=== PATIENT | male | born 1950 | race Caucasian/White ===

== ENCOUNTER 2016-12-08 06:14 | Inpatient (IN) ==
--- NOTE | 2016-12-04 09:15 | Anesthesia Evaluation PreOp ---
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: TIA (no residual) Other Medical History: Renal (stage 3 CKD), Diabetes Type II Anesthesia History: No Prior Anesthetic Complications, Past Anesthesia ( Cholecystectomy) Alcohol Use: none Drug use: none Medications and Allergies Atorvastatin [Lipitor] 40 mg PO HS 06/07/15 [History] Isosorbide MONOnitrate (24 HR) [Imdur] 30 mg PO DAILY 06/07/15 [History] Lisinopril 2.5 mg PO DAILY 06/07/15 [History] Metformin HCl [Glucophage] 1,000 mg PO BID 06/07/15 [History] Metoprolol 50 mg PO BID 06/07/15 [History] Ascorbic Acid [Vitamin C] 1,000 mg PO DAILY 08/07/15 [History] Aspirin [Adult Low Dose Aspirin EC] 81 mg PO DAILY 08/07/15 [History] Vitamin E (Dl,Tocopheryl Acet) [Vitamin E] 400 unit PO DAILY 08/07/15 [History] Albuterol Sulfate [Albuterol Inhaler] 2 puff IH QID PRN 12/01/16 [History] Folic Acid 0.4 mg PO DAILY 12/01/16 [History] Insulin NPH/REG 70/30 [HumuLIN 70/30 VIAL] 3 unit SQ HS 12/01/16 [History] Insulin NPH/REG 70/30 [HumuLIN 70/30 VIAL] 9 unit SQ QAM 12/01/16 [History] Insulin Regular, Human [Novolin R] 3 unit SQ TIDWM 12/01/16 [History] Nitroglycerin [Nitrostat] 0.4 mg SL Q5M PRN 12/01/16 [History] OxyCODONE/APAP 5/325 [Percocet 5/325 MG] 1 each PO Q6HR PRN 12/01/16 [History] diazePAM [Valium] 5 mg PO TID PRN 12/01/16 [History] Allergies No Known Allergies Allergy (Verified 12/01/16 08:50) - Meds/Allergy Pre-op Review Medications Reviewed: Yes Allergies Reviewed: Yes Beta Blockers on Current Med List: Yes Anesthesia Results - Labs Laboratory Tests 11/26/16 11/26/16 12/01/16 16:09 16:09 14:18 WBC 5.6 Hgb 12.8 L Hct 39.0 Plt Count 179 Sodium 142 Potassium 4.5 BUN 33 H Creatinine 1.35 H Hemoglobin A1c 5.7 H - Imaging EKG: report reviewed Additional studies: Cath shows 3 vessel disease with EFR 50-55%, Echo shows no valular lesions, mild diastolic dysfunction, inferior hypokinesis Anesthesia Exam Selected Entries 12/08/16 06:37 Temperature 98.3 F Pulse Rate 81 Respiratory Rate 18 Blood Pressure 151/87 O2 Sat by Pulse Oximetry 98 Height: 69in Weight: 91kg NPO (# of Hours): 8 Pain Scale: 0 Pain Scale Used: Numeric (1 - 10) - HEENT Pupil (Motor): EOMI Mallampati: II Teeth: Normal Oral Opening: Greater than 3 - SELF PAY SPECIALIST LOC: Oriented SELF PAY SPECIALIST Motor: Normal RUE, Normal LUE, Normal RLE, Normal LLE, Normal Face SELF PAY SPECIALIST Sensory: Normal: RUE, LUE, RLE, LLE, Face - Cardiac Rhythm: Regular Murmur: None - Pulmonary Breath Sounds: bilateral Clear Respiratory Effort: Symmetrical Anesthesia Assess/Plan ASA Score: 4 Modified [place] Scale for Level of Consciousness: Cooperative, oriented, and tranquil Anesthetic Plan: General Monitoring Plan: Standard Monitors, A-Line, PAC, MADISON (Discussed risks of GA, lines, MADISON and blood products. Questions answered and agrees to proceed.) Recovery Plan: ICU
[2016-12-08] MEDS ORDERED: CeFAZolin Pre 2,000 MG/100 ML 2,000 MG/100 ML BAG IVPB ONE (06:45)
[2016-12-08] MEDS ORDERED: Lidocaine -MPF 1% 2 ML VIAL ID ONE (06:45)
[2016-12-08] MEDS ORDERED: Aspirin 81 MG TAB.CHEW PO ONE (06:53)
[2016-12-08] MEDS ORDERED: Tranexamic Acid 1,000 MG/10 ML VIAL ONE ×2 (06:55→10:30)
[2016-12-08] MEDS ORDERED: Famotidine 20 MG/2 ML VIAL ONE (06:55)
[2016-12-08] MEDS ORDERED: Protamine Sulfate 250 MG/25 ML VIAL IVP ONE (06:55)
[2016-12-08] MEDS ORDERED: *HR* Rocuronium Bromide 50 MG/5 ML VIAL ONE ×2 (06:55→10:57)
[2016-12-08] MEDS ORDERED: *HR* Etomidate 20 MG/10 ML AMPUL IVP ONE (06:55)
[2016-12-08] MEDS ORDERED: *HR* Norepinephrine 4 MG/4 ML VIAL IVC ONE (06:55)
[2016-12-08] MEDS ORDERED: *HR* Phenylephrine 10 MG/ML VIAL ONE (06:55)
[2016-12-08] MEDS ORDERED: Ringers Solution, Lactated 1,000 ML IVC SCH (07:00)
[2016-12-08] MEDS ORDERED: *HR* Midazolam HCl 5 MG/5 ML VIAL IVP ONE ×2 (07:03→10:58)
[2016-12-08] MEDS ORDERED: *HR* FentaNYL (PF) 1,000 MCG/20 ML VIAL ONE (07:04)
[2016-12-08] MEDS ORDERED: Nitroglycerin 25 MG/250 ML INFUS..BTL IVC ONE ×2 (07:06→11:31)
[2016-12-08] MEDS: Chlorhexidine Rinse 15 ML MOUTHWASH MM SCH ×2 (07:06→20:02)
[2016-12-08] MEDS ORDERED: NiCARdipine 2.5 MG/10 ML Syringe IVPB ONE (07:07)
--- NOTE | 2016-12-08 07:27 | History & Physical Report ---
Date of Encounter: 12/08/16 Time of Encounter: 07:26 24 Hour HP Update - Instructions Instructions: If the History and Physical is less than 30 days old and was completed prior to A.M. admission and or procedure and has NOT been updated on calendar day of procedure please complete this update prior to performing procedure. - Update Patient reports changes in Medical Condition: No Changes in examination, assessment, or condition: No Changes in Medication: No Preop tests/diagnostics Reviewed: Yes Pre-Op MRSA Screen: Negative Surgery Remains Indicated: Yes Consent for Planned Operative Procedure(s) Verified: Yes - Pre-Operative Checklist Preoperative Checklist Indicated: No Prophylactic Antibiotic Ordered: Yes Home Medications Include Beta Andrea: Yes Beta Andrea Taken Today (Day of Surgery): Yes Beta Andrea Taken Yesterday (Day Prior to Surgery): Yes Is VTE Prophylaxis Indicated?: NO
--- NOTE | 2016-12-08 09:05 | Anesthesia Procedures ---
Date of Encounter: 12/08/16 Time of Encounter: 08:05 Procedures: Anesthesia - Arterial Line Consent obtained: written consent Time out performed: Yes Sedation: Versed (mg): 2 Sedation: Fentanyl (mcg): 100 Supplemental Oxygen via Nasal Cannula (L/min): 2 Local Anesthetic: Lidocaine 1% Amount of Anesthetic used (mls): 1 Size (Gauge): 20 Length (inches): 5 Technique Used: sterile prep, guide wire technique, direct puncture technique Post-Procedure: line taped into place, dry sterile dressing placed Patient tolerated procedure: well, no complications Complications: none Site: Radial L (easy placement) - Central Line Placement Right IJ Consent obtained: written consent Time out performed: Yes Patient placed on monitor/pulse ox: Yes MD prep: mask, gown, gloves Central line prep: Chlorhexidine scrub Ultrasound used for placement: Yes Technique: Seldinger Lumen Inserted: Introducer Post procedure: sutured in place, good blood return, all ports aspirated, flushed, capped, sterile dressing applied Patient tolerated procedure: well, no complications Complications: none Comments: attempt x 1, easy placement of introducer. Exchange placed easily, no arrythmias induced, wedge approx 58cm
[2016-12-08] MEDS ORDERED: Mannitol 25% vial 12.5 GM/50 ML VIAL IVP ONE (10:17)
[2016-12-08] MEDS ORDERED: *HR* Heparin 10,000 UNIT/10 ML VIAL IV ONE (10:17)
[2016-12-08] MEDS ORDERED: Lidocaine 2% Syringe 100 MG/5 ML IV ONE (10:17)
[2016-12-08] MEDS ORDERED: *HR* Magnesium Sulfate 2 GM/50 ML PIGGYBACK IVPB ONE (10:17)
[2016-12-08] MEDS ORDERED: Albumin Human 25% 25 GM/100 ML IV.SOLN IV ONE (10:17)
[2016-12-08] MEDS ORDERED: *HR* Phenylephrine 10 MG/ML VIAL IVC ONE (10:17)
[2016-12-08] MEDS ORDERED: Sodium Bicarbonate 50 MEQ/50 ML VIAL IVC ONE (10:17)
[2016-12-08] MEDS ORDERED: *HR* FentaNYL (PF) 250 MCG/5 ML VIAL ONE (10:58)
[2016-12-08] MEDS ORDERED: Albumin Human 5% 25.0 GM/500 ML VIAL ONE (11:24)
[2016-12-08] MEDS ORDERED: Albumin Human 5% 50.0 GM/1,000 ML VIAL ONE (11:32)
[2016-12-08] MEDS ORDERED: niCARdipine 40 MG/200 ML MLS IVC ONE (11:32)
[2016-12-08] MEDS ORDERED: Albumin Human 5% 0 GM/0 ML VIAL ONE (11:34)
[2016-12-08] MEDS ORDERED: Protamine Sulfate 50 MG/5 ML VIAL IVP ONE (11:43)
--- NOTE | 2016-12-08 12:20 | Operative Note ---
Date of procedure: 12/08/16 Pre-op diagnosis: CAD with unstable angina. Post-op diagnosis: same Procedure: 1. CABG4 (LEVY to LAD, sequential SVG to D1 then OM 2, SVG to PDA). 2. Modified Maze procedure using radiofrequency ablation. 3. Left atrial appendage stapling. 4. Endoscopic vein harvesting, greater saphenous vein from right lower extremity. 5. Endoscopic vein harvesting, greater saphenous vein from left lower extremity. Implants: None. Complications: None. Anesthesia: BLADE Surgeon: Kate Hughes Distribution Supervisor: Rodolfo Fischer Specimen: None. Condition: stable Disposition: ICU Procedure in Detail: INDICATIONS FOR OPERATION: The patient is a 66-year-old type II diabetic, hypertensive man with man with known CAD, paroxysmal atrial fibrillation, and hypercholesterolemia. He recently suffered a TIA, thought to be due to his PAF. He has undergone previous stent placement and did well until recently. He has redeveloped atypical substernal chest pain, with most of his symptoms being present in the left chest or with deep inspiration. He underwent an outpatient cardiac workup and the nuclear stress test revealed inferior and lateral ischemia. Subsequent cardiac catheterization revealed severe three-vessel CAD. He has been recommended for combined CABG and modified Maze procedure. FINDINGS AT OPERATION: The aorta was normal caliber without calcification. The coronary arteries measure approximately 1.5-2 mm in diameter and had mild distal disease except the left anterior descending which had moderate distal disease. The saphenous vein was harvested endoscopically from both the left and right lower extremities from the knee to the groin. The total bypass time was 95 minutes, cross-clamp time 65 minutes, intentional hypothermia 34C. DESCRIPTION OF OPERATION: After obtaining informed consent for the patient, he was taken to the operative was satisfactory general tracheal anesthetic was induced. Appropriate monitoring lines were placed, and the patient's chest, abdomen, and lower extremities were prepped and draped in a sterile fashion. The greater saphenous vein was initially harvested from the right lower extremity from the knee to the groin and was of good quality. However, only one usable segment of vein could be obtained. The greater saphenous vein was then arrested from the left lower extremity from the knee to the groin and was of adequate quality. The subcutaneous tissue and skin edges were reapproximated using running Vicryl sutures. Simultaneously, a standard median sternotomy incision was made and sternum divided. The LEVY was taken out from its bed and side branches divided between hemoclips. The sternum was and the pericardium opened and reflected laterally. The patient was prepared for cannulation by placing pursestring sutures distal ascending aorta, mid-ascending aorta, and right atrial appendage. The patient was heparinized when the ACT was greater than 200 seconds , the distal ascending aorta was cannulated followed by placement of a dual stage venous cannula through the right atrial appendage and into the inferior vena cava. A stab-in antegrade metabolic cannula was placed in the mid- ascending aorta. The patient was placed on bypass the temperature allowed to drift to 34C. The distal targets were identified and the aorta was crossclamped. The patient received 700 mL of cold antegrade crystalloid cardioplegia through the aortic root, and the patient's heart obtained rapid diastolic arrest. The right inferior and superior pulmonary veins were then isolated and a transmural radiofrequency ablation was performed. The PDA was then opened with a blade, and the vein was anastomosed in end-to-side fashion using a running 7- 0 Prolene suture. The anastomosis found to be hemostatic. The left inferior and superior pulmonary veins were then isolated and a transmural radiofrequency ablation was performed. The left atrial appendage was then closed using a stapling device without a knife. The patient received a notice of cold antegrade crystalloid cardioplegia through the aortic root. The OM2 branch was opened with a blade and the vein was anastomosed in an end-to-side fashion using a running 7-0 Prolene suture. The anastomosis found to be hemostatic. The D1 branch was opened with the patient blade and the vein was opened in longitudinal fashion so the [id number] anastomosis could be completed using a running 7-0 Prolene suture. The anastomosis found to be hemostatic and patient proceeded final dose of cold antegrade crystalloid cardioplegia through the aortic root. Finally, the LAD was opened with a Marion blade and the LEVY was anastomosed in an end-to-side fashion 7-0 Prolene suture. The anastomosis was found to be hemostatic and the mammary pedicle was tacked to the epicardium using interrupted 5-0 silk suture. Rewarming was begun during this anastomosis. The aortic cross-clamp was released and the heart distended. The veins were measured and cut at appropriate lengths. A partial occluding clamp was placed across the midascending aorta and the antegrade cardioplegia cannula was removed. An additional aortotomy site was made with 11 blade and both sides were 4 mm punch. The veins were anastomosed in an end-to-side fashion to the aorta using a running 5-0 Prolene suture. The vein grafts were occluded with bulldog clamps and de-aired with a 25-gauge needle prior to removing the partial occluding clamp. The proximal distal anastomoses were found to be hemostatic, and the proximal anastomoses were marked with radiopaque loops. Two right ventricular temporary epicardial pacing was placed, and 3 chest tubes were placed, 2 in the mediastinum and one into the left pleural space. During rewarming the patient's heart rhythm degenerated to ventricular fibrillation and required two 10 J direct current shocks in order to regain normal sinus rhythm. When the patient' s systemic temperature reached 36 degrees centigrade, he was ventilated and received volume. He was then weaned from bypass required no inotropic support. The aortic and venous cannulae removed and the pursestring suture secured. The venous cannulation site was reinforced with a 4-0 Prolene suture. The pericardium was loosely approximated the midline using interrupted 0 silk suture and the sternum was reapproximated using sternal wires. The pectoralis major fascia, rectus abdominis fascia, subcutaneous tissue, and skin edges were reapproximated using running Vicryl sutures. Sterile dressings were applied. The patient was transferred to the ICU in satisfactory postoperative condition. There were no intraoperative complications, and the instrument, needle, and sponge count were correct at end of operation. - Open Heart Detail REID (Internal Mammary Artery) Usage: Yes Cardiopulmonary Bypass Time (mins): 95 Aortic Cross Clamp Time (mins): 65 Intentional Hypothermia Temperature (C.): 34
[2016-12-08] MEDS: Nitroglycerin 25 MG/250 ML INFUS..BTL IVC SCH ×2 (12:32→20:04)
[2016-12-08] MEDS ORDERED: Naloxone 0.4 MG/ML INJ IVP PRN (12:32)
[2016-12-08] MEDS ORDERED: Magnesium Sulfate 2 GM in D5% in Water 100 ML IVPB PRN (12:32)
[2016-12-08] MEDS ORDERED: Ondansetron 4 MG/2 ML VIAL IVP PRN (12:32)
[2016-12-08] MEDS ORDERED: Potassium Chloride 40 MEQ/200 ML BAG IVPB PRN (12:32)
[2016-12-08] MEDS ORDERED: Insulin Regular, Human 100 UNIT/ML IV PRN (12:32)
[2016-12-08] MEDS ORDERED: *HR* Morphine 2 MG/ML SYRINGE IVP PRN (12:32)
[2016-12-08] MEDS ORDERED: Calcium Chloride 1,000 MG in 0.9 % Sodium Chloride 100 ML IVPB PRN (12:32)
[2016-12-08] MEDS ORDERED: Acetaminophen 650 MG RECTAL SUPP RC PRN (12:32)
[2016-12-08] MEDS ORDERED: Acetaminophen 325 MG TABLET PO PRN (12:32)
[2016-12-08] MEDS ORDERED: *HR* Dextrose 50 % in Water (Syg) 50 ML SYRINGE IVP PRN (12:32)
[2016-12-08] MEDS ORDERED: Insulin Human Regular 100 UNIT in 0.9 % Sodium Chloride 100 ML IVC SCH (12:45)
[2016-12-08] MEDS ORDERED: 0.9 % Sodium Chloride w KCl 20 MEQ/1,000 ML MLS IVC SCH (12:45)
[2016-12-08] MEDS: niCARdipine 40 MG/200 ML MLS IVC SCH ×2 (12:45→20:04)
[2016-12-08 12:57] LABS: Red Cell Distribution Width 12.5 % (11.5-14.5)
[2016-12-08 12:58] LABS: ABG Base Excess 4.9 mEq/L (-2.0 to 3.0); ABG HCO3 29.2 mEQ/L (21-27); ABG Oxygen Saturation 99 % (95-98); ABG PCO2 41 mmHg (35-45); ABG PO2 145 mmHg (85-104); ABG TCO2 30.5 mEq/L (20-26)
[2016-12-08 12:59] LABS: Blood Gas FiO2 50 %; Eosinophils # 0.1 K/mcL (0.0-0.6); Immature Platelets 3.6 % (1.1-6.1); Mean Corpuscular Hemoglobin 29.3 pg (28.0-33.3); Mean Corpuscular Volume 86.2 fL (83.0-100.0); Mean Platelet Volume 9.9 fL (9.4-12.4); Platelet Count 75 K/mcL (140-400)
[2016-12-08 13:01] LABS: ABG PH 7.46 pH Units (7.32-7.45); Hemoglobin 8.5 g/dL (12.9-16.9)
[2016-12-08 13:02] LABS: INR 1.6
[2016-12-08 13:05] LABS: Activated Partial Thrombo Time 33.4 Seconds (26.0-36.0)
[2016-12-08 13:09] LABS: BUN/Creatinine Ratio 16 (6-26); Blood Urea Nitrogen 14 mg/dL (8-26); Calcium 7.7 mg/dL (8.6-10.8); Carbon Dioxide 24 mEq/L (19-29); Chloride 107 mEq/L (98-109); Glucose 141 mg/dL (70-99); Magnesium 2.2 mg/dL (1.6-2.6); Osmolality,Calculated 297 (280-300); Potassium 3.3 mEq/L (3.5-4.5); Sodium 142 mEq/L (136-145); eGFR For African Americans > 60 (> 60); eGFR For Non-African Americans > 60 (> 60)
[2016-12-08 13:22] LABS: Lymphocytes # 0.7 K/mcL (0.6-4.6); Monocytes # 0.1 K/mcL (0.0-1.3); Platelet Estimate Decreased (Normal)
[2016-12-08] MEDS: *HR* Morphine 2 MG/ML SYRINGE IVP PRN ×2 (14:01→23:00)
[2016-12-08] MEDS ORDERED: 0.9 % Sodium Chloride 500 ML ONE (14:56)
[2016-12-08] MEDS: Pantoprazole 40 MG VIAL IVP SCH (14:58)
[2016-12-08] MEDS ORDERED: 0.9 % Sodium Chloride 250 ML ONE ×2 (15:23→18:12)
[2016-12-08 15:35] LABS: ABG Base Excess 0.8 mEq/L (-2.0 to 3.0); ABG HCO3 27.4 mEQ/L (21-27); ABG PCO2 52 mmHg (35-45); ABG PH 7.33 pH Units (7.32-7.45); ABG PO2 61 mmHg (85-104)
[2016-12-08 15:36] LABS: ABG Glucose 123 mg/dL (60-95); ABG Hematocrit 36 % (35-51); ABG Oxygen Saturation 89 % (95-98)
[2016-12-08 15:38] LABS: ABG Base Excess -0.9 mEq/L (-2.0 to 3.0); ABG Glucose 151 mg/dL (60-95); ABG HCO3 23.4 mEQ/L (21-27); ABG Hematocrit 29 % (35-51); ABG Ionized Calcium 0.98 mmol/L (1.15-1.35); ABG Oxygen Saturation 100 % (95-98); ABG PCO2 36 mmHg (35-45); ABG PH 7.42 pH Units (7.32-7.45); ABG PO2 172 mmHg (85-104); ABG TCO2 24.5 mEq/L (20-26)
[2016-12-08 15:43] LABS: ABG Base Excess -0.3 mEq/L (-2.0 to 3.0); ABG Glucose 190 mg/dL (60-95); ABG HCO3 23.9 mEQ/L (21-27); ABG Hematocrit 25 % (35-51); ABG Ionized Calcium 0.98 mmol/L (1.15-1.35); ABG Oxygen Saturation 100 % (95-98); ABG PCO2 36 mmHg (35-45); ABG PH 7.43 pH Units (7.32-7.45); ABG PO2 451 mmHg (85-104)
[2016-12-08 15:45] LABS: VBG HCO3 27.2 mEq/L (21-27); VBG PH 7.42 pH Units (7.32-7.42)
--- NOTE | 2016-12-08 15:45 | Electrocardiograph Report ---
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
[2016-12-08 15:46] LABS: VBG Ionized Calcium 0.88 mmol/L (1.15-1.35)
[2016-12-08 15:57] LABS: ABG PCO2 37 mmHg (35-45); ABG PH 7.42 pH Units (7.32-7.45)
[2016-12-08 15:58] LABS: ABG Base Excess -0.4 mEq/L (-2.0 to 3.0); ABG Glucose 132 mg/dL (60-95); ABG Hematocrit 24 % (35-51); ABG Ionized Calcium 1.16 mmol/L (1.15-1.35); ABG Oxygen Saturation 100 % (95-98); ABG PO2 180 mmHg (85-104); ABG TCO2 25.1 mEq/L (20-26)
[2016-12-08] MEDS ORDERED: ceFAZolin 2,000 MG in D5% in Water 100 ML IVPB SCH (16:00)
[2016-12-08 16:40] LABS: ABG Base Excess 1.2 mEq/L (-2.0 to 3.0); ABG HCO3 26.6 mEQ/L (21-27); ABG Oxygen Saturation 99 % (95-98); ABG PCO2 46 mmHg (35-45); ABG PO2 120 mmHg (85-104); Blood Gas FiO2 35 %
[2016-12-08 16:44] LABS: ABG PH 7.37 pH Units (7.32-7.45)
[2016-12-08 17:09] LABS: Mixed Venous Blood pCO2 54 mmHg (44-46); Mixed Venous Blood pO2 39 mmHg (35-45)
[2016-12-08] MEDS: *HR* OxyCODONE/APAP 5/325 TABLET PO PRN ×2 (17:10→21:12)
[2016-12-08 17:13] LABS: Mixed Venous Blood pH 7.34 (7.34-7.36)
[2016-12-08 17:13] LABS: Hematocrit 22.1 % (37.5-50.1); Hemoglobin 7.3 g/dL (12.9-16.9)
[2016-12-08] MEDS: Metoclopramide 10 MG/2 ML VIAL IVP SCH ×2 (17:23→23:00)
[2016-12-08] MEDS: ceFAZolin 2,000 MG in D5% in Water 100 ML IVPB SCH (18:31)
[2016-12-08] MEDS: Norepinephrine 4 MG in D5% in Water 250 ML IVC SCH (19:23)
[2016-12-08] MEDS: Furosemide 20 MG/2 ML VIAL IVP SCH (20:02)
[2016-12-08 21:00] LABS: ABG Base Excess 3.5 mEq/L (-2.0 to 3.0); ABG HCO3 28.5 mEQ/L (21-27); ABG Oxygen Saturation 99 % (95-98); ABG PCO2 45 mmHg (35-45); ABG PH 7.41 pH Units (7.32-7.45); ABG PO2 121 mmHg (85-104); ABG TCO2 29.9 mEq/L (20-26); Blood Gas FiO2 35 %
[2016-12-08 21:47] LABS: ABG Base Excess 4.4 mEq/L (-2.0 to 3.0); ABG HCO3 29.7 mEQ/L (21-27); ABG Oxygen Saturation 98 % (95-98); ABG PCO2 48 mmHg (35-45); ABG PO2 102 mmHg (85-104); ABG TCO2 31.2 mEq/L (20-26)
[2016-12-08 21:48] LABS: Blood Gas FiO2 30 %
[2016-12-08 23:29] LABS: ABG Base Excess 3.7 mEq/L (-2.0 to 3.0); ABG HCO3 29.1 mEQ/L (21-27); ABG Oxygen Saturation 97 % (95-98); ABG PCO2 48 mmHg (35-45); ABG PH 7.39 pH Units (7.32-7.45); ABG PO2 91 mmHg (85-104); ABG TCO2 30.6 mEq/L (20-26); Blood Gas FiO2 32 %; Blood Gas Liter Flow 3 L/MIN
[2016-12-09] MEDS: ceFAZolin 2,000 MG in D5% in Water 100 ML IVPB SCH (02:53)
[2016-12-09] MEDS: Nitroglycerin 25 MG/250 ML INFUS..BTL IVC SCH ×3 (02:53→23:08)
[2016-12-09] MEDS: niCARdipine 40 MG/200 ML MLS IVC SCH ×3 (02:54→19:49)
[2016-12-09 03:07] LABS: Hemoglobin 6.9 g/dL (12.9-16.9); Immature Granulocytes % 0.4 % (0-4); Red Cell Distribution Width 13.8 % (11.5-14.5)
[2016-12-09 03:08] LABS: Eosinophils % 0.2 %; Hematocrit 20.6 % (37.5-50.1); Immature Platelets 3.8 % (1.1-6.1); Lymphocytes # 0.4 K/mcL (0.6-4.6); Mean Corpuscular HGB Conc 33.5 g/dL (31.6-35.5); Mean Corpuscular Hemoglobin 28.8 pg (28.0-33.3); Mean Corpuscular Volume 85.8 fL (83.0-100.0); Mean Platelet Volume 9.9 fL (9.4-12.4); Monocytes # 0.5 K/mcL (0.0-1.3); Monocytes % 10.3 %; Neutrophils # 4.2 K/mcL (1.6-8.9); Segmented Neutrophils % 81.1 %
[2016-12-09 03:11] LABS: Platelet Count 82 K/mcL (140-400)
[2016-12-09 03:21] LABS: BUN/Creatinine Ratio 13 (6-26); Blood Urea Nitrogen 19 mg/dL (8-26); Calcium 7.6 mg/dL (8.6-10.8); Carbon Dioxide 26 mEq/L (19-29); Chloride 107 mEq/L (98-109); Glucose 156 mg/dL (70-99); Magnesium 1.7 mg/dL (1.6-2.6); Osmolality,Calculated 295 (280-300); Potassium 4.1 mEq/L (3.5-4.5); Sodium 140 mEq/L (136-145); eGFR For African Americans > 60 (> 60); eGFR For Non-African Americans 50 (> 60)
[2016-12-09 03:54] LABS: INR 1.3
[2016-12-09 03:57] LABS: Activated Partial Thrombo Time 27.9 Seconds (26.0-36.0)
[2016-12-09] MEDS: Metoclopramide 10 MG/2 ML VIAL IVP SCH ×4 (05:00→23:08)
[2016-12-09] MEDS: *HR* Morphine 2 MG/ML SYRINGE IVP PRN ×4 (05:58→18:47)
--- NOTE | 2016-12-09 06:56 | Cardiothoracic Progress Note ---
Date of Encounter: 12/09/16 Time of Encounter: 06:54 - Assessment and plan (1) CAD (coronary artery disease) Current Visit: No Status: Acute The patient is recovering well from his CABG 4 and modified Maze procedure. He is extubated and breathing comfortably. His chest tube output has decreased significantly overnight as the coagulopathy corrected. His hemoglobin is less than 7 and he will receive 1 unit PRBCs this morning. The arterial line, Jo catheter, and Bartley-Lucian catheter will be removed. The patient will be monitored in the ICU today. The assessment and plan as outlined above was discussed with the patient and/or family members who expressed understanding and agreement. All questions were answered. Qualifiers: Coronary Disease-Associated Artery/Lesion type: [place] artery [place] vs. transplanted heart: [place] heart Associated angina: with stable angina Qualified Code(s): I25.118 - Atherosclerotic heart disease of [place] coronary artery with other forms of angina pectoris - Subjective Procedure(s) Performed: POD#1 S/P CABG4, modified Maze procedure Interval history: The patient remained hemodynamically stable overnight. He is extubated and breathing comfortably. He has no complaints. Vital Signs, Last 4 Hours Temp Pulse Resp BP Pulse Ox 12/09/16 06:00 100.4 F H 110 14 127/41 96 12/09/16 05:00 100.1 F H 114 16 120/39 96 12/09/16 04:29 18 95 12/09/16 04:00 99.5 F 111 16 113/40 97 12/09/16 03:00 99 F 104 14 111/37 97 Oxgyen Flow Rate Oxygen Flow Rate (LPM) 2 Clinical Data, last 8 Hours Output, Chest Tube Drainage 5 Amount [Mediastinal #2] Output, Chest Tube Drainage 5 Amount [Mediastinal #2] Output, Chest Tube Drainage 5 Amount [Mediastinal #2] Output, Chest Tube Drainage 2 Amount [Mediastinal #2] Output, Chest Tube Drainage 5 Amount [Mediastinal #2] Output, Chest Tube Drainage 0 Amount [Mediastinal #2] Output, Chest Tube Drainage 5 Amount [Mediastinal #2] Output, Chest Tube Drainage 2 Amount [Mediastinal #1] Output, Chest Tube Drainage 20 Amount [Mediastinal #1] Output, Chest Tube Drainage 40 Amount [Mediastinal #1] Output, Chest Tube Drainage 5 Amount [Mediastinal #1] Output, Chest Tube Drainage 5 Amount [Mediastinal #1] Output, Chest Tube Drainage 5 Amount [Mediastinal #1] Output, Chest Tube Drainage 5 Amount [Mediastinal #1] Weight 12/07/16 12/08/16 12/09/16 23:59 23:59 23:59 Weight 92.079 kg - Physical Examination General: Conversant, No Apparent Distress Neck: No JVD, Normal carotid pulses Cardiac: Reg Rate and Rhythm, Normal S1 and S2, No Murmur Incision: No signs of infection, Dry/intact dressing Sternum: Stable Chest tubes: Minimal drainage, Other (No air leak.) Pacing Wires: In place Lungs: Normal Breath Sounds, No Wheeze, Rales, Rhonchi Neuro: Alert and responsive, No focal deficits noted Vascular: Normal capillary refill Musculoskeletal: No Chest Wall Tenderness Extremities: No Clubbing, No Cyanosis, No Edema - Labs 12/09/16 03:00 12/09/16 03:00 Lab Results, Last 24 hours 12/08/16 12/08/16 12/08/16 12:47 12:47 12:47 WBC 5.9 Hgb 8.5 L Hct 25.0 L Plt Count 75 L INR 1.6 APTT 33.4 Sodium 142 Potassium 3.3 L Chloride 107 Carbon Dioxide 24 BUN 14 Creatinine 0.86 Glucose 141 H Calcium 7.7 L Magnesium 2.2 12/08/16 12/08/16 12/09/16 16:30 16:30 03:00 WBC 5.2 Hgb 7.3 L 6.9 L Hct 22.1 L 20.6 L Plt Count 82 L INR APTT Sodium Potassium 3.9 Chloride Carbon Dioxide BUN Creatinine Glucose Calcium Magnesium 12/09/16 12/09/16 03:00 03:00 WBC Hgb Hct Plt Count INR 1.3 APTT 27.9 Sodium 140 Potassium 4.1 Chloride 107 Carbon Dioxide 26 BUN 19 Creatinine 1.41 H D Glucose 156 H Calcium 7.6 L Magnesium 1.7 - Imaging Chest Xray: image reviewed (No pneumothorax. Increasing left basilar atelectasis.) - VTE Reasons for not Prescribing Prophylaxis: Treatment not Indicated - Low risk for VTE Consult Discharge Plan - Plan Referrals: Vira Austin, CANDY VENDOR [Primary Care Provider] -
[2016-12-09] MEDS ORDERED: Amiodarone Premix 150 MG/100 ML BAG IVPB ONE (06:58)
[2016-12-09] MEDS ORDERED: Amiodarone Premix 360 MG/200 ML BAG IVC ONE (07:00)
[2016-12-09] MEDS ORDERED: 0.9 % Sodium Chloride 250 ML ONE (07:37)
[2016-12-09] MEDS: Pantoprazole 40 MG VIAL IVP SCH (07:41)
[2016-12-09] MEDS: Chlorhexidine Rinse 15 ML MOUTHWASH MM SCH ×2 (07:42→19:57)
[2016-12-09] MEDS: Aspirin Enteric Coated 81 MG Tablet PO SCH (07:42)
[2016-12-09] MEDS: Amiodarone Premix 360 MG/200 ML BAG IVC SCH ×3 (08:06→23:56)
[2016-12-09] MEDS: *HR* OxyCODONE/APAP 5/325 TABLET PO PRN ×3 (09:21→23:56)
--- NOTE | 2016-12-09 09:50 | Anesthesia Evaluation Post Op ---
Date of Encounter: 12/09/16 Time of Encounter: 09:40 - Vital Signs Vital Signs: Selected Entries 12/09/16 08:47 Temperature 100.2 F H Pulse Rate 89 Respiratory Rate 15 Blood Pressure 109/43 O2 Sat by Pulse Oximetry 98 - Lungs Lungs: Clear Ascult./Percussion - Airway Airway: Non-obstructed - Cardiovascular Regular Rate (on amiodarone drip) - Mental Status Mental Status: Alert & Oriented, Answers Appropriately - Pain Pain Scale: 0 Pain Scale used: Numeric (1 - 10) - Nausea Vomiting Nausea Vomiting: Not Present - Hydration Hydration: Tolerates oral liquids, Jo catheter (patient doing great, voices no problems. No apparent anesthesia issues post op)
[2016-12-09 10:32] LABS: ABG Base Excess 0.3 mEq/L (-2.0 to 3.0); ABG Glucose 128 mg/dL (60-95); ABG HCO3 24.6 mEQ/L (21-27); ABG Hematocrit 20 % (35-51); ABG Ionized Calcium 0.73 mmol/L (1.15-1.35); ABG Oxygen Saturation 100 % (95-98); ABG PCO2 37 mmHg (35-45); ABG PH 7.43 pH Units (7.32-7.45); ABG PO2 482 mmHg (85-104); ABG TCO2 25.7 mEq/L (20-26)
[2016-12-09] MEDS ORDERED: D5% in Water 1,000 ML IVC PRN (12:38)
[2016-12-09] MEDS ORDERED: Dextrose Gel 15 GM PO PRN ×2 (12:38)
[2016-12-09] MEDS ORDERED: *HR* Dextrose 50 % in Water (Syg) 50 ML SYRINGE IVP PRN (12:38)
[2016-12-09] MEDS: Furosemide 20 MG/2 ML VIAL IVP SCH ×2 (12:44→19:57)
[2016-12-09] MEDS: Norepinephrine 4 MG in D5% in Water 250 ML IVC SCH (13:01)
--- NOTE | 2016-12-09 14:58 | Anesthesia Evaluation PreOp ---
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 HX Other Medical History: Denies Any Significant HX Anesthesia History: No Prior Anesthetic Complications, Past Anesthesia (none) Alcohol Use: none Drug use: none Medications and Allergies Atorvastatin [Lipitor] 40 mg PO HS 06/07/15 [History] Isosorbide MONOnitrate (24 HR) [Imdur] 30 mg PO DAILY 06/07/15 [History] Lisinopril 2.5 mg PO DAILY 06/07/15 [History] Metformin HCl [Glucophage] 1,000 mg PO BID 06/07/15 [History] Metoprolol [Lopressor] 50 mg PO BID #0 06/07/15 [History] Ascorbic Acid [Vitamin C] 1,000 mg PO DAILY 08/07/15 [History] Aspirin [Adult Low Dose Aspirin EC] 81 mg PO HS 08/07/15 [History] Vitamin E (Dl,Tocopheryl Acet) [Vitamin E] 400 unit PO DAILY 08/07/15 [History] Albuterol Sulfate [Albuterol Inhaler] 2 puff IH QID PRN 12/01/16 [History] Folic Acid 0.4 mg PO DAILY 12/01/16 [History] Insulin NPH/REG 70/30 [HumuLIN 70/30 VIAL] 3 unit SQ HS 12/01/16 [History] Insulin NPH/REG 70/30 [HumuLIN 70/30 VIAL] 9 unit SQ QAM 12/01/16 [History] Insulin Regular, Human [Novolin R] 3 unit SQ TIDWM 12/01/16 [History] Nitroglycerin [Nitrostat] 0.4 mg SL Q5M PRN 12/01/16 [History] OxyCODONE/APAP 5/325 [Percocet 5/325 MG] 1 each PO Q6HR PRN 12/01/16 [History] diazePAM [Valium] 5 mg PO TID PRN 12/01/16 [History] Enoxaparin [Lovenox] 90 mg SQ Q12HR 12/08/16 [History] Warfarin Sodium [Coumadin] 6 mg PO SA 12/08/16 [History] Warfarin [Coumadin] 4 mg PO SUMOTUWETHFR 12/08/16 [History] Allergies No Known Allergies Allergy (Verified 12/08/16 07:49) - Meds/Allergy Pre-op Review Medications Reviewed: Yes Allergies Reviewed: Yes Beta Blockers on Current Med List: No Anesthesia Results - Labs 12/09/16 03:00 12/09/16 03:00 - Imaging EKG: report reviewed Additional studies: cath shows 3 vessel ds Anesthesia Exam Selected Entries 12/09/16 14:00 Pulse Rate 94 Respiratory Rate 16 Blood Pressure 114/68 O2 Sat by Pulse Oximetry 97 Oxygen Flow Rate (LPM) 2 Oxygen Delivery Method Nasal Cannula Weight: 90kg NPO (# of Hours): 8 Pain Scale: 0 Pain Scale Used: Numeric (1 - 10) - HEENT Pupil (Motor): EOMI Mallampati: II Teeth: Normal Oral Opening: Greater than 3 - PRODUCTION SCHEDULER LOC: Oriented PRODUCTION SCHEDULER Motor: Normal RUE, Normal LUE, Normal RLE, Normal LLE, Normal Face PRODUCTION SCHEDULER Sensory: Normal: RUE, LUE, RLE, LLE, Face - Cardiac Rhythm: Regular Murmur: None - Pulmonary Breath Sounds: bilateral Clear Respiratory Effort: Symmetrical Anesthesia Assess/Plan ASA Score: 4 Modified [place] Scale for Level of Consciousness: Cooperative, oriented, and tranquil Anesthetic Plan: General Monitoring Plan: Standard Monitors, A-Line, PAC, MAD[place] Recovery Plan: ICU
--- NOTE | 2016-12-09 15:06 | Anesthesia Procedures ---
Date of Encounter: 12/09/16 Time of Encounter: 09:00 Procedures: Anesthesia - Arterial Line Consent obtained: written consent Time out performed: Yes Sedation: Versed (mg): 2 Sedation: Fentanyl (mcg): 100 Supplemental Oxygen via Nasal Cannula (L/min): 2 Local Anesthetic: Lidocaine 1% Amount of Anesthetic used (mls): 1 Size (Gauge): 20 Length (inches): 5 Technique Used: sterile prep, guide wire technique, direct puncture technique Post-Procedure: line taped into place, dry sterile dressing placed Patient tolerated procedure: well, no complications Complications: none Site: Radial L - Central Line Placement Right IJ Consent obtained: written consent Time out performed: Yes Patient placed on monitor/pulse ox: Yes prep: mask, gown, gloves Central line prep: Chlorhexidine scrub Ultrasound used for placement: Yes Technique: Seldinger Lumen Inserted: Introducer Post procedure: sutured in place, good blood return, all ports aspirated, flushed, capped, sterile dressing applied Patient tolerated procedure: well, no complications Complications: none
[2016-12-09] MEDS: Insulin LISPRO 300 UNITS/3 ML VIAL SQ SCH (18:01)
[2016-12-09] MEDS ORDERED: Insulin LISPRO 300 UNITS/3 ML VIAL SQ SCH (21:00)
[2016-12-10] MEDS: niCARdipine 40 MG/200 ML MLS IVC SCH (01:00)
[2016-12-10 03:25] LABS: Mean Corpuscular Volume 88.6 fL (83.0-100.0)
[2016-12-10 03:27] LABS: Hemoglobin 7.9 g/dL (12.9-16.9); Immature Platelets 5.6 % (1.1-6.1); Mean Corpuscular HGB Conc 32.9 g/dL (31.6-35.5); Mean Corpuscular Hemoglobin 29.2 pg (28.0-33.3); Mean Platelet Volume 10.9 fL (9.4-12.4); Red Blood Count 2.71 M/mcL (4.19-5.50); Red Cell Distribution Width 14.5 % (11.5-14.5)
[2016-12-10 03:28] LABS: Platelet Count 76 K/mcL (140-400)
[2016-12-10 03:33] LABS: BUN/Creatinine Ratio 15 (6-26); Blood Urea Nitrogen 22 mg/dL (8-26); Calcium 7.8 mg/dL (8.6-10.8); Carbon Dioxide 28 mEq/L (19-29); Chloride 104 mEq/L (98-109); Glucose 288 mg/dL (70-99); Osmolality,Calculated 300 (280-300); Potassium 4.3 mEq/L (3.5-4.5); Sodium 138 mEq/L (136-145); eGFR For African Americans > 60 (> 60); eGFR For Non-African Americans 50 (> 60)
[2016-12-10 03:53] LABS: Eosinophils # 0.1 K/mcL (0.0-0.6); Lymphocytes # 0.6 K/mcL (0.6-4.6); Monocytes # 0.5 K/mcL (0.0-1.3); Neutrophils # 4.7 K/mcL (1.6-8.9); Platelet Estimate Decreased (Normal)
[2016-12-10] MEDS: Metoclopramide 10 MG/2 ML VIAL IVP SCH (05:03)
[2016-12-10] MEDS: *HR* OxyCODONE/APAP 5/325 TABLET PO PRN ×3 (06:23→17:33)
[2016-12-10] MEDS: Pantoprazole 40 MG VIAL IVP SCH ×2 (07:49→09:12)
[2016-12-10] MEDS: Insulin LISPRO 300 UNITS/3 ML VIAL SQ SCH ×4 (07:49→20:25)
[2016-12-10] MEDS: Chlorhexidine Rinse 15 ML MOUTHWASH MM SCH ×3 (07:50→20:25)
[2016-12-10] MEDS: Aspirin Enteric Coated 81 MG Tablet PO SCH ×2 (07:50→09:10)
[2016-12-10] MEDS: Furosemide 20 MG/2 ML VIAL IVP SCH ×3 (07:50→17:19)
--- NOTE | 2016-12-10 08:11 | Cardiothoracic Progress Note ---
Date of Encounter: 12/10/16 Time of Encounter: 08:09 - Assessment and plan (1) CAD (coronary artery disease) Current Visit: No Status: Acute The assessment and plan as outlined above was discussed with the patient and/or family members who expressed understanding and agreement. All questions were answered. The patient does have the usual, expected acute postoperative blood loss anemia. Chest tubes were removed. We will check a stat portable chest x-ray. We will transfer the patient to the floor. Qualifiers: Coronary Disease-Associated Artery/Lesion type: [place] artery [place] vs. transplanted heart: [place] heart Associated angina: with stable angina Qualified Code(s): I25.118 - Atherosclerotic heart disease of [place] coronary artery with other forms of angina pectoris - Subjective Interval history: The patient has no complaints other than mild postoperative pain. Vital Signs, Last 4 Hours Temp Pulse Resp BP Pulse Ox 12/10/16 07:34 19 98 12/10/16 07:20 98.3 F 12/10/16 05:55 82 19 127/84 98 12/10/16 05:11 98.3 F 12/10/16 05:00 80 14 133/75 98 Oxgyen Flow Rate Oxygen Flow Rate (LPM) 2 Clinical Data, last 8 Hours Output, Chest Tube Drainage 10 Amount [Mediastinal #2] Output, Chest Tube Drainage 20 Amount [Mediastinal #1] Output, Urine Amount 200 Output, Urine Amount 200 Weight 12/08/16 12/09/16 12/10/16 23:59 23:59 23:59 Weight 92.079 kg 97.2 kg Lungs are clear to percussion and auscultation. Heart is in a normal sinus rhythm on an amiodarone drip. All incisions are healing well without signs of infection and the sternum is stable. Chest tube drainage is minimal and there is no air leak. - Labs 12/10/16 03:13 12/10/16 03:13 Lab Results, Last 24 hours 12/10/16 12/10/16 03:13 03:13 WBC 5.9 Hgb 7.9 L Hct 24.0 L Plt Count 76 L Sodium 138 Potassium 4.3 Chloride 104 Carbon Dioxide 28 BUN 22 Creatinine 1.42 H Glucose 288 H Calcium 7.8 L - VTE Reasons for not Prescribing Prophylaxis: Treatment not Indicated - Low risk for VTE Consult Discharge Plan - Plan Referrals: Vira Austin, GARBAGE WORKER [Primary Care Provider] -
[2016-12-10] MEDS ORDERED: Ondansetron 4 MG/2 ML VIAL IVP PRN (08:36)
[2016-12-10] MEDS ORDERED: D5% in Water 1,000 ML IVC PRN (08:36)
[2016-12-10] MEDS ORDERED: *HR* Morphine 2 MG/ML SYRINGE IVP PRN ×2 (08:36)
[2016-12-10] MEDS ORDERED: diazePAM 5 MG TABLET PO PRN (08:36)
[2016-12-10] MEDS ORDERED: Dextrose Gel 15 GM PO PRN ×2 (08:36)
[2016-12-10] MEDS ORDERED: *HR* Dextrose 50 % in Water (Syg) 50 ML SYRINGE IVP PRN (08:36)
[2016-12-10] MEDS ORDERED: Acetaminophen 325 MG TABLET PO PRN (08:36)
[2016-12-10] MEDS ORDERED: Naloxone 0.4 MG/ML INJ IVP PRN (08:36)
[2016-12-10] MEDS: Amiodarone Premix 360 MG/200 ML BAG IVC SCH ×2 (11:52→22:47)
[2016-12-10] MEDS: *HR* Warfarin 4 MG TABLET PO SCH (17:30)
[2016-12-10] MEDS ORDERED: *HR* Warfarin 4 MG TABLET PO SCH (18:00)
[2016-12-11 05:32] LABS: Basophils % 0.2 %; Eosinophils # 0.1 K/mcL (0.0-0.6); Eosinophils % 1.6 %; Hematocrit 23.7 % (37.5-50.1); Immature Granulocytes % 0.6 % (0-4); Lymphocytes # 0.4 K/mcL (0.6-4.6); Mean Corpuscular HGB Conc 33.8 g/dL (31.6-35.5); Mean Corpuscular Volume 88.8 fL (83.0-100.0); Mean Platelet Volume 10.7 fL (9.4-12.4); Monocytes # 0.5 K/mcL (0.0-1.3); Monocytes % 9.4 %; Nucleated Red Blood Cells 0.6 /100 WBC (0); Red Blood Count 2.67 M/mcL (4.19-5.50); Red Cell Distribution Width 14.2 % (11.5-14.5); Segmented Neutrophils % 80.2 %
[2016-12-11 05:33] LABS: Platelet Count 88 K/mcL (140-400)
[2016-12-11 05:41] LABS: INR 1.2; Prothrombin Time 12.7 Seconds (9.4-12.1)
[2016-12-11 05:46] LABS: BUN/Creatinine Ratio 18 (6-26); Blood Urea Nitrogen 23 mg/dL (8-26); Calcium 8.3 mg/dL (8.6-10.8); Carbon Dioxide 28 mEq/L (19-29); Chloride 101 mEq/L (98-109); Glucose 264 mg/dL (70-99); Osmolality,Calculated 299 (280-300); Potassium 3.9 mEq/L (3.5-4.5); Sodium 138 mEq/L (136-145); eGFR For African Americans > 60 (> 60); eGFR For Non-African Americans 57 (> 60)
[2016-12-11] MEDS: Furosemide 20 MG/2 ML VIAL IVP SCH (07:48)
[2016-12-11] MEDS: Aspirin Enteric Coated 81 MG Tablet PO SCH (07:48)
[2016-12-11] MEDS: Chlorhexidine Rinse 15 ML MOUTHWASH MM SCH ×2 (07:48→20:06)
[2016-12-11] MEDS: Pantoprazole 40 MG VIAL IVP SCH (07:48)
[2016-12-11] MEDS: Insulin LISPRO 300 UNITS/3 ML VIAL SQ SCH ×4 (07:49→20:06)
--- NOTE | 2016-12-11 08:44 | Cardiothoracic Progress Note ---
Date of Encounter: 12/11/16 Time of Encounter: 08:42 - Assessment and plan (1) CAD (coronary artery disease) Current Visit: No Status: Acute I will discontinue the amiodarone drip and placed the patient on by mouth amiodarone. Hopefully, he can be discharged in 1-2 days. Qualifiers: Coronary Disease-Associated Artery/Lesion type: [place] artery [place] vs. transplanted heart: [place] heart Associated angina: with stable angina Qualified Code(s): I25.118 - Atherosclerotic heart disease of [place] coronary artery with other forms of angina pectoris - Subjective Interval history: The patient is ambulating and has no complaints. Vital Signs, Last 4 Hours Temp Pulse Resp BP Pulse Ox 12/11/16 08:03 83 12/11/16 07:52 16 100 12/11/16 07:12 99.9 F H 83 16 128/64 99 12/11/16 04:50 76 Oxgyen Flow Rate Oxygen Flow Rate (LPM) 2 Weight 12/09/16 12/10/16 12/11/16 23:59 23:59 23:59 Weight 97.2 kg 96.7 kg Lungs are clear to percussion and auscultation. Heart is in a normal sinus rhythm. All incisions are healing well without signs of infection and the sternum is stable. - Labs 12/11/16 05:15 12/11/16 05:15 Lab Results, Last 24 hours 12/11/16 12/11/16 12/11/16 05:15 05:15 05:15 WBC 5.0 Hgb 8.0 L Hct 23.7 L Plt Count 88 L INR 1.2 Sodium 138 Potassium 3.9 Chloride 101 Carbon Dioxide 28 BUN 23 Creatinine 1.26 H Glucose 264 H Calcium 8.3 L - VTE Reasons for not Prescribing Prophylaxis: Treatment not Indicated - Low risk for VTE Documentation of Mechanical Device: Graduated compression elastic hosiery Consult Discharge Plan - Plan Referrals: Kate Hughes MD [Partnered Physician] - 01/08/17 2:15 pm Vira Austin, ASSISTANT DIRECTOR [Primary Care Provider] - (SENT WEB REQUEST ON 12-10-16 @ 1400) Barron Beckford DO [Partnered Physician] - (SENT WEB REQUEST ON 12-10-16 @ [phone] )
[2016-12-11] MEDS: *HR* Amiodarone 200 MG TABLET PO SCH ×2 (09:12→20:05)
[2016-12-11] MEDS: *HR* OxyCODONE/APAP 5/325 TABLET PO PRN (10:59)
[2016-12-11] MEDS: *HR* Warfarin 4 MG TABLET PO SCH (17:10)
[2016-12-12 07:36] VITALS: BP 133/72
[2016-12-12] MEDS: Chlorhexidine Rinse 15 ML MOUTHWASH MM SCH (07:44)
[2016-12-12] MEDS: Pantoprazole 40 MG VIAL IVP SCH (07:44)
[2016-12-12] MEDS: Aspirin Enteric Coated 81 MG Tablet PO SCH (07:44)
[2016-12-12] MEDS: *HR* Amiodarone 200 MG TABLET PO SCH (07:44)
[2016-12-12] MEDS: Insulin LISPRO 300 UNITS/3 ML VIAL SQ SCH (07:46)
--- NOTE | 2016-12-12 09:22 | Discharge Summary ---
Date of Encounter: 12/12/16 Time of Encounter: 09:16 - Discharge Diagnosis (1) CAD (coronary artery disease) Priority: Primary Status: Acute Qualifiers: Coronary Disease-Associated Artery/Lesion type: [place] artery [place] vs. transplanted heart: [place] heart Associated angina: with stable angina Qualified Code(s): I25.118 - Atherosclerotic heart disease of [place] coronary artery with other forms of angina pectoris - Discharge Medications Prescriptions: OxyCODONE/APAP 5/325 [Percocet 5/325 MG] 1 each PO Q4HR PRN #30 tablet PRN Reason: Severe Pain Amiodarone [Cordarone] 200 mg PO DAILY #30 tablet Home Medications: Atorvastatin [Lipitor] 40 mg PO HS 06/07/15 [History] Isosorbide MONOnitrate (24 HR) [Imdur] 30 mg PO DAILY 06/07/15 [History] Lisinopril 2.5 mg PO DAILY 06/07/15 [History] Metformin HCl [Glucophage] 1,000 mg PO BID 06/07/15 [History] Metoprolol [Lopressor] 50 mg PO BID #0 06/07/15 [History] Ascorbic Acid [Vitamin C] 1,000 mg PO DAILY 08/07/15 [History] Aspirin [Adult Low Dose Aspirin EC] 81 mg PO HS 08/07/15 [History] Vitamin E (Dl,Tocopheryl Acet) [Vitamin E] 400 unit PO DAILY 08/07/15 [History] Albuterol Sulfate [Albuterol Inhaler] 2 puff IH QID PRN 12/01/16 [History] Folic Acid 0.4 mg PO DAILY 12/01/16 [History] Insulin NPH/REG 70/30 [HumuLIN 70/30 VIAL] 3 unit SQ HS 12/01/16 [History] Insulin NPH/REG 70/30 [HumuLIN 70/30 VIAL] 9 unit SQ QAM 12/01/16 [History] Insulin Regular, Human [Novolin R] 3 unit SQ TIDWM 12/01/16 [History] Nitroglycerin [Nitrostat] 0.4 mg SL Q5M PRN 12/01/16 [History] OxyCODONE/APAP 5/325 [Percocet 5/325 MG] 1 each PO Q6HR PRN 12/01/16 [History] diazePAM [Valium] 5 mg PO TID PRN 12/01/16 [History] Warfarin Sodium [Coumadin] 6 mg PO SA 12/08/16 [History] Warfarin [Coumadin] 4 mg PO SUMOTUWETHFR 12/08/16 [History] Amiodarone [Cordarone] 200 mg PO DAILY #30 tablet 12/12/16 [Rx] OxyCODONE/APAP 5/325 [Percocet 5/325 MG] 1 each PO Q4HR PRN #30 tablet 12/12/16 [Rx] Allergies/Adverse Reactions: Allergies No Known Allergies Allergy (Verified 12/08/16 07:49) Date of admission: 12/08/16 09:41 Primary care physician: Vira Austin CNP Consults: 12/08/16 12:32 Consult to Cardiac Rehabilitation-Phase1 [CONS] Routine Comment: Reason for Consult: Post open heart Call Completed: Yes Procedure(s) Performed: December 08, 2016. Coronary artery bypass grafting 4, utilizing the left internal mammary artery. Also a modified Maze procedure with left atrial appendage stapling. Discharging clinician: Mike Austin Anticipated date of discharge: 12/12/16 - Patient Status Disposition: Home, Self-Care Condition: Fair Functional capacity at discharge: independent ambulation Overall status at discharge: patient is progressing back to baseline - Discharge Instructions Follow Up With: Kate Hughes MD [Partnered Physician] - 01/08/17 2:15 pm Vira Austin CNP [Primary Care Provider] - 12/19/16 1:45 am () Barron Beckford DO [Partnered Physician] - (SENT WEB REQUEST ON 12-10-16 @ [phone] ) - Hospital Course Hospital course: is a 66 year old male The patient is a 66-year-old gentleman with a history of diabetes, hypertension , hypercholesterolemia, stent placement and paroxysmal atrial fibrillation. Cardiac catheterization revealed severe coronary artery disease and he was referred for surgery. On December 08, 2016, Dr. Hughes took the patient to the operating room for coronary artery bypass grafting 4, utilizing the left internal mammary artery. He also performed modified maze procedure and left atrial appendage stapling. Postoperatively, the patient had the usual expected acute postoperative blood loss anemia. He was started on an amiodarone drip to prevent atrial fibrillation. On December 10, his chest tubes were removed. Chest x- ray revealed no pneumothorax. On December 11, he was switched from IV to by mouth amiodarone. The patient otherwise did well and was discharged on December 12. At that time, he was afebrile. Lungs were clear to percussion and auscultation. Heart was in a normal sinus rhythm. All incisions were healing well without signs of infection and his sternum was stable. Discharge medications are on the [facility] and include Percocet for pain. I did check the [place] automated Rx reporting system. The patient was given a one-week supply and he was postoperative. Appropriate precautions were given. The patient had been started on his usual dose of Coumadin prior to discharge. He was told to continue this and follow up with the Coumadin clinic as directed. Appropriate precautions were given. He was to return to his previous and regular diet. He was to avoid heavy lifting for a total of 3 months after surgery, but to walk as much as possible. He was to avoid driving for 1 month. He was to follow up and see Dr. Hughes in 4 weeks as directed. He was to follow up and see his family doctor and guest history clerk as directed. He was to call sooner for any difficulties. - Time Spent with Patient Total time spent providing and/or coordinating discharge services: Physical Examination Vital Signs, Last 4 Hours Temp Pulse Resp BP Pulse Ox 12/12/16 08:06 18 96 12/12/16 07:32 98.6 F 72 18 133/72 95 [facility] Aspirin Cont/Prescribed at DC: Yes Beta Andrea Cont/Prescribed at DC: Yes Statin Cont/Prescribed at DC: Yes LAYA/ARB Cont/Prescribed at DC: Yes - VTE Reasons for not Prescribing Prophylaxis: Treatment not Indicated - Low risk for VTE Documentation of Mechanical Device: Graduated compression elastic hosiery
== END 2016-12-12 11:18 | disposition home or self-care (01) ==
LOC: SAMDAY 06:14 → ICNU 09:41 → 2NNU 12-10 11:49
PROVIDERS: ADMIT Thoracic Surgery (Cardiothoracic Vascular Surgery); ATTEND Thoracic Surgery (Cardiothoracic Vascular Surgery)

== ENCOUNTER 2017-03-04 09:16 | Inpatient (IN) ==
[2017-03-04] MEDS ORDERED: 0.9 % Sodium Chloride 1,000 ML IVC ONE (09:19)
[2017-03-04] MEDS ORDERED: *HR* Atropine Sulfate 1 MG/10 ML SYRINGE IVP ONE (09:19)
[2017-03-04] MEDS ORDERED: *HR* Atropine Sulfate 1 MG/10 ML SYRINGE ONE (09:22)
--- NOTE | 2017-03-04 09:24 | Emergency Department Note ---
Disposition Clinical Impression: Near syncope, Bradycardia, Hyperkalemia Disposition: Admitted As Inpatient Condition: Fair Referrals: Vira Austin INVENTORY CONTROL ANALYST [Primary Care Provider] - Forms: ED Satisfaction Letter Time of Disposition: 10:36 Arrhythmia/Palpitations HPI - General Chief Complaint: ED Arrhythmia/Palpitations Stated Complaint: low heart rate Time Seen by Provider: 03/04/17 09:18 Source: patient, EMS Mode of arrival: EMS Limitations: no limitations Nursing Notes Reviewed: Yes Vital Signs Reviewed: Yes - History of Present Illness HPI Narrative: Had just completed cardiac rehabilitation weight training when he fell lightheaded and dizzy. She became diaphoretic and pale. He was found to have a heart rate in the 30s. He was transported to the emergency department with a transcutaneous pacer in place. The patient denies symptoms at the time of arrival. He states "I am ready to go back and mow" Pt Subjective Complaint: irregular heart beat Onset (ago): minute(s) Duration: constant Severity: severe Context: occurred during exertion Arrhythmia History: atrial fibrillation Associated symptoms: Reports: near-syncope, diaphoresis - Related Data Home Medications Medication Instructions Recorded Confirmed Atorvastatin [Lipitor] 80 mg PO HS 06/07/15 01/20/17 Lisinopril 2.5 mg PO DAILY 06/07/15 01/20/17 Metformin HCl [Glucophage] 1,000 mg PO BID 06/07/15 01/20/17 Metoprolol [Lopressor] 50 mg PO BID #0 06/07/15 01/20/17 Ascorbic Acid [Vitamin C] 1,000 mg PO DAILY 08/07/15 01/20/17 Aspirin [Adult Low Dose Aspirin EC] 81 mg PO HS 08/07/15 01/20/17 Vitamin E (Dl,Tocopheryl Acet) 400 unit PO DAILY 08/07/15 01/20/17 [Vitamin E] Folic Acid 0.4 mg PO DAILY 12/01/16 01/20/17 Insulin NPH/REG 70/30 [HumuLIN 5 unit SQ HS 12/01/16 01/20/17 70/30 VIAL] Insulin NPH/REG 70/30 [HumuLIN 11 unit SQ QA 12/01/16 01/20/17 70/30 VIAL] Insulin Regular, Human [Novolin R] 5 unit SQ TIDWM 12/01/16 01/20/17 Nitroglycerin [Nitrostat] 0.4 mg SL Q5M PRN 12/01/16 01/20/17 Warfarin Sodium [Coumadin] 2 mg PO 3XW 12/08/16 01/20/17 Warfarin [Coumadin] 4 mg PO 4XW 12/08/16 01/20/17 Isosorbide MONOnitrate (24 HR) 30 mg PO DAILY 01/20/17 01/20/17 [Imdur] Previous Rx's Medication Instructions Recorded Amiodarone [Cordarone] 200 mg PO DAILY #30 tablet 12/12/16 OxyCODONE/APAP 5/325 [Percocet 1 each PO Q4HR PRN #30 tablet 12/12/16 5/325 MG] Allergies Allergy/AdvReac Type Severity Reaction Status Date / Time No Known Allergies Allergy Verified 12/15/16 13:52 All systems ED: reviewed and negative except as stated. Constitutional: Reports: as per [facility] Eyes: Reports: as per [facility] ENT ED: Reports: other (Intermittent pain over his tragus) Cardiovascular: Reports: other (Near syncope, bradycardia) Respiratory: Reports: as per HPI Gastrointestinal: Reports: as per HPI Genitourinary: Reports: as per HPI Musculoskeletal: Reports: as per [facility] Integumentary: Reports: other ([place], diaphoresis) Neurological: Reports: as per HPI Endocrine: Reports: as per HPI Hematological/Lymphatic: Reports: as per HPI Allergic/Immunologic: Reports: as per HPI Past Medical History - Past Medical History Source: patient Medical history: Reports: atrial fibrillation, cardiomyopathy, coronary artery disease, diabetes, hyperlipidemia, hypertension, myocardial infarction, renal disease, sudden cardiac , TIA Surgical history: Reports: angioplasty/stent, cholecystectomy, coronary bypass ( CABG) Psychiatric history: Reports: no psych history - Social History Smoking Status: Former smoker Smokeless Tobacco Status: No Alcohol use: Reports: none Drug use: Reports: none Physical Exam Alert, lucid. Lying supine. Appears in no acute distress - General Limitations: no limitations General appearance: alert - Head Head exam: atraumatic - Eye Eye exam: Present: normal appearance, PERRL - ENT ENT exam: normal exam - Neck Neck exam: Present: normal inspection, full ROM - Chest Chest inspection: Present: normal inspection, symmetric chest wall rise, other ( Healing sternotomy incision) - Respiratory Respiratory exam: Present: normal lung sounds bilaterally - Cardiovascular Cardiovascular exam: Present: bradycardia - Rectal Exam Rectal exam: Present: deferred - Extremities Exam Extremities exam: Present: normal inspection - Neurological Exam Neurological exam: Present: alert, oriented X3, CN II-XII intact - Psychiatric Psychiatric exam: Present: normal affect, normal mood - Skin Skin exam: Present: warm, dry, intact Course Course Narrative: Patient arrives after a near syncopal event. Telemetry strip indicates bradycardia arrhythmia with heart rate in the low 30s. IV atropine given. The patient is not unstable otherwise at this time as he is mentating. I am concerned about his history of underlying atrial fibrillation in conjunction with taking a beta wendy. I will also investigate for possible electrolyte disturbances including hyperkalemia. The patient will be closely observed pending reassessment - Reevaluation(s) Reevaluation #1: Patient continues to be bradycardic but less so after the atropine. He is hemodynamically stable. Resting comfortably. I will request admission to the medicine service. I am concerned about ongoing bradycardia, possible sick sinus syndrome, syncope and fall. He takes Coumadin and is at risk for a traumatic hemorrhage should he have a syncopal event and fall - Consultations Consultation #1: call placed to cardiology bus info consultant Vital Signs Temperature 0 F L 03/04/17 09:19 Pulse Rate 32 03/04/17 09:19 Respiratory Rate 18 03/04/17 09:19 Blood Pressure 115/59 03/04/17 09:19 O2 Sat by Pulse Oximetry 100 03/04/17 09:19 Temperature 0 F L 03/04/17 09:19 Pulse Rate 58 03/04/17 10:30 Respiratory Rate 18 03/04/17 10:30 Blood Pressure 114/51 03/04/17 10:30 O2 Sat by Pulse Oximetry 100 03/04/17 10:30 Oxygen Delivery Oxygen Delivery Room Air Arrhythmia/Palpitations - Lab Data Lab results reviewed: Yes I reviewed the patient's lab results. Result diagrams: 03/04/17 09:58 03/04/17 09:58 Lab Results 03/04/17 03/04/17 03/04/17 Range/Units 09:58 09:58 09:58 WBC 4.2 L (4.3-11.1) K/mcL RBC 3.99 L (4.19-5.50) M/mcL Hgb 11.1 L (12.9-16.9) g/dL Hct 36.0 L (37.5-50.1) % MCV 90.2 (83.0-100.0) fL MCH 27.8 L (28.0-33.3) pg MCHC 30.8 L (31.6-35.5) g/dL RDW 14.9 H (11.5-14.5) % Plt Count 136 L (140-400) K/mcL MPV 10.2 (9.4-12.4) fL Immature Gran % 0.5 (0-4) % Seg Neutrophils % 75.8 % Lymphocytes % 13.9 % Monocytes % 8.1 % Eosinophils % 1.2 % Basophils % 0.5 % Neutrophils # 3.2 (1.6-8.9) K/mcL Lymphocytes # 0.6 (0.6-4.6) K/mcL Monocytes # 0.3 (0.0-1.3) K/mcL Eosinophils # 0.1 (0.0-0.6) K/mcL Basophils # 0.0 (0.0-0.2) K/mcL PT 34.4 H (9.4-12.1) Seconds INR 3.1 Sodium 142 (136-145) mEq/L Potassium 5.8 H (3.5-4.5) mEq/L Chloride 113 H (98-109) mEq/L Carbon Dioxide 20 (19-29) mEq/L BUN 33 H (8-26) mg/dL Creatinine 1.49 H (0.72-1.25) mg/dL Est GFR ( Amer) 57 L (> 60) Est GFR (Non-Af Amer) 47 L (> 60) BUN/Creatinine Ratio 22 (6-26) Glucose 122 H (70-99) mg/dL Calculated Osmolality 303 H (280-300) Calcium 8.6 (8.6-10.8) mg/dL Magnesium 1.5 L (1.6-2.6) mg/dL Total Bilirubin 0.2 (0.2-1.2) mg/dL AST 50 H (5-34) Units/L ALT 44 (0-55) Units/L Alkaline Phosphatase 88 (38-126) Units/L Troponin I (0-0.03) ng/mL Serum Total Protein 6.6 (6.0-8.3) g/dL Albumin 3.5 (3.5-5.0) g/dL Globulin 3.1 (2.4-3.5) g/dL Albumin/Globulin Ratio 1.1 (1.1-2.2) 03/04/17 Range/Units 09:58 WBC (4.3-11.1) K/mcL RBC (4.19-5.50) M/mcL Hgb (12.9-16.9) g/dL Hct (37.5-50.1) % MCV (83.0-100.0) fL MCH (28.0-33.3) pg MCHC (31.6-35.5) g/dL RDW (11.5-14.5) % Plt Count (140-400) K/mcL MPV (9.4-12.4) fL Immature Gran % (0-4) % Seg Neutrophils % % Lymphocytes % % Monocytes % % Eosinophils % % Basophils % % Neutrophils # (1.6-8.9) K/mcL Lymphocytes # (0.6-4.6) K/mcL Monocytes # (0.0-1.3) K/mcL Eosinophils # (0.0-0.6) K/mcL Basophils # (0.0-0.2) K/mcL PT (9.4-12.1) Seconds INR Sodium (136-145) mEq/L Potassium (3.5-4.5) mEq/L Chloride (98-109) mEq/L Carbon Dioxide (19-29) mEq/L BUN (8-26) mg/dL Creatinine (0.72-1.25) mg/dL Est GFR ( Amer) (> 60) Est GFR (Non-Af Amer) (> 60) BUN/Creatinine Ratio (6-26) Glucose (70-99) mg/dL Calculated Osmolality (280-300) Calcium (8.6-10.8) mg/dL Magnesium (1.6-2.6) mg/dL Total Bilirubin (0.2-1.2) mg/dL AST (5-34) Units/L ALT (0-55) Units/L Alkaline Phosphatase (38-126) Units/L Troponin I 0.02 (0-0.03) ng/mL Serum Total Protein (6.0-8.3) g/dL Albumin (3.5-5.0) g/dL Globulin (2.4-3.5) g/dL Albumin/Globulin Ratio (1.1-2.2) - EKG Data EKG attestation: Yes I reviewed and interpreted this EKG. EKG results narrative: Bradycardic rate 41 bpm QRS 105 QT/QTc 4:30/365. No acute ST segment elevation. Study compared to previous dated 12/17/16 10:05: Repeat ECG shows sinus bradycardia rate 56 CO 144 QRS 101 QT/QTC 380/373 Critical Care Time Critical Care Time: Yes Total Critical Care Time: 30 Attestation: Patient presented with near syncope and bradycardia requiring IV atropine and treatment of his hyperkalemia
[2017-03-04 10:24] LABS: Basophils % 0.5 %; Eosinophils # 0.1 K/mcL (0.0-0.6); Eosinophils % 1.2 %; Hemoglobin 11.1 g/dL (12.9-16.9); Immature Granulocytes % 0.5 % (0-4); Lymphocytes # 0.6 K/mcL (0.6-4.6); Lymphocytes % 13.9 %; Mean Corpuscular HGB Conc 30.8 g/dL (31.6-35.5); Mean Corpuscular Hemoglobin 27.8 pg (28.0-33.3); Mean Corpuscular Volume 90.2 fL (83.0-100.0); Mean Platelet Volume 10.2 fL (9.4-12.4); Monocytes # 0.3 K/mcL (0.0-1.3); Monocytes % 8.1 %; Neutrophils # 3.2 K/mcL (1.6-8.9); Platelet Count 136 K/mcL (140-400); Red Blood Count 3.99 M/mcL (4.19-5.50); Red Cell Distribution Width 14.9 % (11.5-14.5); Segmented Neutrophils % 75.8 %
[2017-03-04 10:25] LABS: INR 3.1; Prothrombin Time 34.4 Seconds (9.4-12.1)
[2017-03-04 10:34] LABS: Albumin 3.5 g/dL (3.5-5.0); Albumin/Globulin Ratio 1.1 (1.1-2.2); Bilirubin,Total 0.2 mg/dL (0.2-1.2); Calcium 8.6 mg/dL (8.6-10.8); Globulin 3.1 g/dL (2.4-3.5); Magnesium 1.5 mg/dL (1.6-2.6); Potassium 5.8 mEq/L (3.5-4.5); Total Protein 6.6 g/dL (6.0-8.3)
[2017-03-04] MEDS ORDERED: Calcium Chloride 1,000 MG in 0.9 % Sodium Chloride 100 ML IVPB ONE (10:52)
[2017-03-04] MEDS ORDERED: *HR* Dextrose 50 % in Water (Syg) 50 ML SYRINGE IVP ONE (10:53)
[2017-03-04] MEDS ORDERED: Insulin Regular, Human 100 UNIT/ML IV ONE (10:53)
[2017-03-04 10:56] LABS: Thyroid Stimulating Hormone 2.834 mcIU/mL (0.350-4.840)
[2017-03-04] MEDS ORDERED: Nitroglycerin 0.4 MG TAB.SUBL SL PRN (12:10)
[2017-03-04] MEDS ORDERED: *HR* OxyCODONE/APAP 5/325 TABLET PO PRN (12:10)
[2017-03-04] MEDS ORDERED: *HR* Dextrose 50 % in Water (Syg) 50 ML SYRINGE IVP PRN (12:18)
[2017-03-04] MEDS ORDERED: D5% in Water 1,000 ML IVC PRN (12:18)
[2017-03-04] MEDS ORDERED: Dextrose Gel 15 GM PO PRN ×2 (12:18)
[2017-03-04] MEDS ORDERED: Naloxone 0.4 MG/ML INJ IVP PRN (12:18)
--- NOTE | 2017-03-04 12:21 | Cardiology Consult Note ---
<Jeannette Hahn - Last Filed: 03/04/17 13:15> Date of Encounter: 03/04/17 Time of Encounter: 12:00 Assessment and Plan (1) Bradycardia Current Visit: Yes Status: Acute Per cardiology: -ECG reviewed with and felt to be junctional bradycardia, HR 41. -Patient denies dizziness, lightheadedness, syncope, or near syncope. -Patient states he felt ok except some fatigue. -Was given atropine in ER, HR reported 36 on arrival. -Patient reports was transcutaneously paced from cardiac rehab. -Was on beta wendy and amiodarone in oupatient setting. -Of note, K 5.8 and Mg 1.5. -Hold AV maurice wendy and amiodarone. -Agree with correcting electrolyte imbalances. -Will continue to monitor telemetry. (2) Paroxysmal atrial fibrillation Current Visit: No Status: Chronic Per cardiology: -KNown PAF, recent modified MAZE during CABG -Was on beta wendy and amiodarone in outpatient setting. -Anticoagulated with coumadin. -ECG with junctional bradycardia, HR 41. -Will hold AV maurice blockers due to bradycardia. -Will continue to monitor. (3) BELTRAN (acute kidney injury) Current Visit: Yes Status: Acute Per cardiology: -BELTRAN noted with creatinine 1.49. -Baseline 0.9-1.2. -Of note, Mg 1.5. -Will replace magnesium. -Management per primary service. (4) Hyperkalemia Current Visit: Yes Status: Acute Per cardiology: -K 5.8 on admission. -Was treated in ER. -Management per primary service. (5) CAD (coronary artery disease) Current Visit: No Status: Acute Per cardiology: -KNown CAD with [facility] 11/2016 with severe multi-vessel disease. -CABG x4 11/2016 with LEVY to LAD, SVG to D1 and OM2, and SVG to PDA. -Denies chest pain. -ECG with no ischemic changes. -Echo 11/2016 with LVEF 55%, mild LV DD, moderately dilated LA, no significant valvular dysfunction, all fong with normal motion. -On asa, statin. Beta wendy being held due to bradycardia -Troponin negative x1. -Will continue to monitor. Qualifiers: Coronary Disease-Associated Artery/Lesion type: deering artery [place] vs. transplanted heart: deering heart Associated angina: with stable angina Qualified Code(s): I25.118 - Atherosclerotic heart disease of deering coronary artery with other forms of angina pectoris Discussion w patient/family: The assessment and plan as outlined above was discussed with the patient who expressed understanding and agreement. All questions were answered. Thank you for involving us in the care of your patient. Please call with any questions. Discussed and reviewed with . History of Present Illness Consult date: 03/04/17 Requesting physician: Jorgito Kat Consult reason: bradycardia Chief complaint: fatigue History of present illness: is a 66 year old male with a relevant past medical history of CAD with CABG x4 11/2016, atrial fibrillation, DM, HTN, hyperlipidemia, TIA. Patient was at cardiac rehab today when he noticed the excercises seemed to be more taxing today. Patient states he felt fatigued. Patient denies dizziness, lightheadedness, syncope, or near syncope. Patient states he was sitting down waiting for the next available treadmill, when the nurse came to evaluate him due to his HR on the monitor in the 30s. Patient states he felt ok. Patient denies loss of conciousness. Patient states he was being transcutaneously paced while awaiting transport to ER. Patient was seen and examined in ER. Patient denies chest pain, shortness of breath, or dizziness. Patient's only complaint was about hospital billing from his last ER visit. Past Med Surg Social Fam HX - Past Medical History Attestation: Yes The following information was validated with the patient. Source: patient, old records reviewed Medical history: atrial fibrillation, cardiomyopathy, coronary artery disease, diabetes, hyperlipidemia, hypertension, myocardial infarction, renal disease, sudden cardiac , TIA Psychiatric history: no psych history - Past Surgical History Surgical History: angioplasty/stent, cholecystectomy, coronary bypass (CABG) - Social History Smoking Status: Former smoker Smokeless Tobacco Status: No Alcohol use: none Drug use: none - Family History Mother Living Status: Still Living Hx Family Cardiac Disorders: Yes (CABG) Father Living Status: Hx Family Cardiac Disorders: Yes (Abdominal aneurysm) Brother Living Status: Still Living Hx Family Cardiac Disorders: Yes (Htn, hyperlipidemia) Hx Family Endocrine Disorder: Yes (DM) Hx Family Neurologic Disorders: Yes (CVA x 2) Medications and Allergies Atorvastatin [Lipitor] 80 mg PO HS 06/07/15 [History] Lisinopril 2.5 mg PO DAILY 06/07/15 [History] Metformin HCl [Glucophage] 1,000 mg PO BID 06/07/15 [History] Metoprolol [Lopressor] 50 mg PO BID #0 06/07/15 [History] Ascorbic Acid [Vitamin C] 1,000 mg PO DAILY 08/07/15 [History] Aspirin [Adult Low Dose Aspirin EC] 81 mg PO HS 08/07/15 [History] Vitamin E (Dl,Tocopheryl Acet) [Vitamin E] 400 unit PO DAILY 08/07/15 [History] Folic Acid 0.4 mg PO DAILY 12/01/16 [History] Insulin Regular, Human [Novolin R] 0 unit SQ AD 12/01/16 [History] Nitroglycerin [Nitrostat] 0.4 mg SL Q5M PRN 12/01/16 [History] Warfarin Sodium [Coumadin] 2 mg PO MOWEFR 12/08/16 [History] Warfarin [Coumadin] 4 mg PO SUTUTHSA 12/08/16 [History] Amiodarone [Cordarone] 200 mg PO DAILY #30 tablet 12/12/16 [Rx] OxyCODONE/APAP 5/325 [Percocet 5/325 MG] 1 each PO Q4HR PRN #30 tablet 12/12/16 [Rx] Isosorbide MONOnitrate (24 HR) [Imdur] 30 mg PO DAILY 01/20/17 [History] Furosemide [Lasix] 20 mg PO DAILY 03/04/17 [History] Insulin Glargine [Lantus] 12 unit SQ HS 03/04/17 [History] 3 Allergy/AdvReac Type Severity Reaction Status Date / Time No Known Allergies Allergy Verified 12/15/16 13:52 All Systems Review: A 10-system review of systems was performed and is negative for pertinent findings except as documented above in the HPI. - Constitutional Constitutional: fatigue - Cardiovascular Cardiovascular: as per HPI Physical Examination Vital Signs Temperature 0 F L 03/04/17 09:19 Pulse Rate 32 03/04/17 09:19 Respiratory Rate 18 03/04/17 09:19 Blood Pressure 115/59 03/04/17 09:19 O2 Sat by Pulse Oximetry 100 03/04/17 09:19 Temperature 0 F L 03/04/17 09:19 Pulse Rate 58 03/04/17 10:30 Respiratory Rate 18 03/04/17 10:30 Blood Pressure 114/51 03/04/17 10:30 O2 Sat by Pulse Oximetry 100 03/04/17 10:30 Oxygen Delivery Oxygen Delivery Room Air General: Conversant, No Apparent Distress HEENT: Atraumatic, Normocephaly, Mucus Membranes Moist Neck: No JVD, Normal carotid pulses Cardiac: Other (Bradycardic) Lungs: Normal Breath Sounds, No Wheeze, Rales, Rhonchi Neuro: Alert and responsive, No focal deficits noted Abdomen: Soft, Non-Tender Skin: No rashes noted on visualized skin Musculoskeletal: No Chest Wall Tenderness Extremities: No Clubbing, No Cyanosis, No Edema, Normal Pulses Results 03/04/17 09:58 03/04/17 09:58 Active Medications Amiodarone HCl (Cordarone) 200 mg PO DAILY INDIGO Stop: 09/04/17 09:01 Ascorbic Acid (Vitamin C) 1,000 mg PO DAILY INDIGO Stop: 09/04/17 09:01 Aspirin (Aspirin Ec) 81 mg PO HS INDIGO Stop: 09/03/17 21:01 Atorvastatin Calcium (Lipitor) 80 mg PO HS INDIGO Stop: 09/03/17 21:01 Dextrose/Water (Dextrose 50% (Syg)) 25 ml IVP AD PRN PRN Reason: Hypoglycemia Stop: 09/03/17 12:19 Folic Acid (Folic Acid) 0.5 mg PO DAILY INDIGO Stop: 09/04/17 09:01 Furosemide (Lasix) 20 mg PO DAILY INDIGO Stop: 09/04/17 09:01 Glucagon (Glucagen) 1 mg IM ONCE PRN PRN Reason: Hypoglycemia Stop: 09/03/17 12:19 Glucose (Gluctose) 15 gm PO ONCE PRN PRN Reason: Hypoglycemia Stop: 09/03/17 12:19 Glucose (Gluctose) 30 gm PO ONCE PRN PRN Reason: Hypoglycemia Stop: 09/03/17 12:19 Sodium Chloride (0.9 % Sodium Chloride) 1,000 mls @ 100 mls/hr IVC .Q10H INDIGO Stop: 03/05/17 04:00 Dextrose (Dextrose 5%) 1,000 mls @ 100 mls/hr IVC .Q10H PRN PRN Reason: HYPOGLYCEMIA Stop: 09/03/17 12:19 Insulin Detemir (Levemir) 12 unit SQ HS [facility] Stop: 09/03/17 21:01 Insulin Human Lispro (Humalog) 0 units SQ TIDAC INDIGO PRN Reason: Protocol Stop: 09/03/17 16:31 Insulin Human Lispro (Humalog) 0 units SQ HS [facility] PRN Reason: Protocol Stop: 09/03/17 21:01 Isosorbide Mononitrate (Imdur) 30 mg PO DAILY [facility] Stop: 09/04/17 09:01 Naloxone HCl (Narcan) 0.4 mg IVP Q2MIN PRN PRN Reason: Opioid Reversal Stop: 09/03/17 12:19 Nitroglycerin (Nitroglycerin) 0.4 mg SL Q5M PRN PRN Reason: Chest Pain Stop: 09/03/17 12:11 Non-Formulary Medication (Lisinopril [Lisinopril]) 2.5 mg PO DAILY [facility] Stop: 09/04/17 09:01 Oxycodone/Acetaminophen (Percocet 5/325) 1 each PO Q4HR PRN PRN Reason: Severe Pain Stop: 09/03/17 12:11 Vitamin E (Vitamin E) 400 unit PO DAILY [facility] Stop: 09/04/17 09:01 Warfarin Sodium (Coumadin Perpt) 1 each PO DAILY@1800 PRN PRN Reason: SEE COMMENTS Stop: 09/03/17 18:01 Laboratory Tests 12/17/16 12/18/16 03/04/17 16:24 04:29 09:58 Hgb 11.1 L INR Potassium Creatinine 1.20 1.09 Est GFR (Non-Af Amer) > 60 Magnesium Troponin I TSH 03/04/17 03/04/17 03/04/17 09:58 09:58 09:58 Hgb INR 3.1 Potassium 5.8 H Creatinine 1.49 H Est GFR (Non-Af Amer) 47 L Magnesium 1.5 L Troponin I 0.02 TSH 2.834 - Imaging and Cardiology Echo: report reviewed Cardiac cath: report reviewed - EKG Interpretation EKG results cardiology: personally reviewed (ECG with junctional bradycardia, HR 41.), other Consult Discharge Plan - Plan Referrals: Vira Austin, JORGE L [Primary Care Provider] - 03/12/17 3:00 pm Barron Beckford DO [Partnered Physician] - 03/09/17 9:40 am <AbisaiEssence - Last Filed: 03/05/17 09:55> Date of Encounter: 03/05/17 Assessment and Plan Discussion w patient/family: The assessment and plan as outlined above was discussed with the patient and/or family members who expressed understanding and agreement. All questions were answered. Thank you for involving us in the care of your patient. Please call with any questions. History of Present Illness History of present illness: is a 66 year old male All Systems Review: A 10-system review of systems was performed and is negative for pertinent findings except as documented above in the HPI. Physical Examination Vital Signs, Last 4 Hours Temp Pulse BP Pulse Ox 03/05/17 08:05 50 03/05/17 06:58 98.1 F 46 135/67 98 Results 03/05/17 04:44 03/05/17 04:44 Lab Results 03/04/17 03/04/17 03/04/17 16:05 16:05 21:54 WBC Hgb Hct Plt Count INR Sodium Potassium 5.4 H Chloride Carbon Dioxide BUN Creatinine Glucose Calcium Troponin I 0.01 0.01 03/05/17 03/05/17 03/05/17 04:44 04:44 04:44 WBC 3.9 L Hgb 11.4 L Hct 35.4 L Plt Count 128 L INR 4.0 Sodium 141 Potassium 4.7 H Chloride 112 H Carbon Dioxide 22 BUN 23 D Creatinine 1.23 Glucose 104 H Calcium 8.8 Troponin I - Attending Attestation I examined this patient and my medical decision-making was reviewed with the Resident Physician. I agree with the documented findings, disposition and treatment plan.
[2017-03-04] MEDS ORDERED: 0.9 % Sodium Chloride 1,000 ML IVC SCH (12:30)
--- NOTE | 2017-03-04 12:37 | Internal Med History&Physical ---
<Armando Cid J - Last Filed: 03/04/17 12:29> Date of Encounter: 03/04/17 Time of Encounter: 12:29 Assessment and Plan (1) Bradycardia Current visit: Yes Status: Acute Was at cardiac rehab felt weak and dizzy, found to be bradycardic via tele monitor with rate of 30's. Initially required transcutaneous pacing. On arrival to the ED received atropine and somewhat improved. Found hyperkalemia in workup, gave calcium, insulin and dextrose and heart rate improved to 50's. Bradycardia is likely caused by bradycardia but need to r/o sick sinus syndrome. Cardiac consult continuous tele Check potassium today at 1600, as this is likely the result of hyperkalemia. Patient given IV insulin, dextrose and calcium while in ED Strict bedrest for now hold Beta wendy Echocardiogram Trend troponins (2) Sick sinus syndrome Current visit: Yes Status: Suspected Recent history of CABG(, social history of A. fib. Is on antiarrhythmics and beta wendy at home. Found to be sinus bradycardia rate of 30 as well as cardiac rehabilitation today. Additionally, found to be hyperkalemic in ED. Marquita is likely caused by hyperkalemia however could also be sick sinus syndrome. Consult cardiovascular further workup is patient may need pacer. Cardiology saw in ED Troponin and TSH both negative. Continuous telemetry Consider transcutaneous pacing if bradycardia persists and patient becomes symptomatic Hold beta wendy Echocardiogram Trend troponins (3) Hyperkalemia Current visit: Yes Status: Acute Hyperkalemia found in ED. Metabolic panel indicates potassium of 5.8. Patient does have symptomatic bradycardia likely also hyperkalemia. Serum potassium at 1600 BMP in a.m. Continuous telemetry (4) BELTRAN (acute kidney injury) Current visit: Yes Status: Acute Patient appears to have an BELTRAN, Cr has increased from baseline to 1.49. AK is likely the result of hypoperfusion secondary to symptomatic bradycardia. Monitor I's and O's and continue to monitor renal function. Will panel in the a.m. hydrate with 0.9% normal saline at 100 mL per hour 1 L (5) Type II diabetes mellitus Current visit: Yes Status: Chronic Chronic type 2 diabetes to which he is on subcutaneous insulin and metformin. Hold metformin for now. Start low-dose sliding scale coverage, continue basal insulin home dose, before meals and at bedtime Accu-Cheks. Escalate or de- escalate insulin regimen is appropriate Qualifiers: Diabetes mellitus complication status: without complication Diabetes mellitus correction insulin use: with director long term care use Qualified Code(s): E11.9 - Type 2 diabetes mellitus without complications; Z79.4 - [facility] (current) use of insulin (6) DVT prophylaxis Current visit: Yes Status: Acute Patient takes Coumadin for atrial fibrillation. 10-year-old Coumadin with pharmacy to [facility] Internal Medicine - H&P: HPI Chief complaint: weakness, fatigue, near syncopal Admitted From: Home Plans for Post Hospital Care: Home History of present illness: is a 66 year old male with a past medical history of recent CABG, A. fib, cardiomyopathy, CAD, DM, HLD, HTN, MN with sudden cardiac , renal disease and TIA. Presents to [facility] from cardiac rehabilitation. Patient states that he was just finishing his rehabilitation for the day and sat down to rest, began feeling a little weak dizzy and fatigued. He then got up to look for his physical therapist to tell them he wasn't feeling well and he reports that they informed him he was south and looked weak. Telemetry revealed bradycardic HR of 30's. He was placed on a transcutaneous pacer and sent to the ED. he admits to fevers and diarrhea within the last 48 hours. However, the diarrhea has ceased at this time. Upon arrival he was given atropine and his HR increased to the 40' s but he remained symptomatic. Workup revealed hyperkalemia and a KCI. He was given calcium, insulin and glucose in the ED and his heart rate increased to the 50s. He is a symptomatically this time. Being admitted to the [facility] for further workup and evaluation. Bradycardia likely caused by hyperkalemia but also potentially sick sinus syndrome . Past Med Surg Social Fam HX - Past Medical History Medical history: atrial fibrillation, cardiomyopathy, coronary artery disease, diabetes, hyperlipidemia, hypertension, myocardial infarction, renal disease, sudden cardiac , TIA Psychiatric history: no psych history - Past Surgical History Surgical History: angioplasty/stent, cholecystectomy, coronary bypass (CABG) - Social History Smoking Status: Former smoker Smokeless Tobacco Status: No Alcohol use: none Drug use: none - Family History Mother Living Status: Still Living Hx Family Cardiac Disorders: Yes (CABG) Father Living Status: Hx Family Cardiac Disorders: Yes (Abdominal aneurysm) Brother Living Status: Still Living Hx Family Cardiac Disorders: Yes (Htn, hyperlipidemia) Hx Family Endocrine Disorder: Yes (DM) Hx Family Neurologic Disorders: Yes (CVA x 2) Internal Medicine - H&P: Meds Atorvastatin [Lipitor] 80 mg PO HS 06/07/15 [History] Lisinopril 2.5 mg PO DAILY 06/07/15 [History] Metformin HCl [Glucophage] 1,000 mg PO BID 06/07/15 [History] Metoprolol [Lopressor] 50 mg PO BID #0 06/07/15 [History] Ascorbic Acid [Vitamin C] 1,000 mg PO DAILY 08/07/15 [History] Aspirin [Adult Low Dose Aspirin EC] 81 mg PO HS 08/07/15 [History] Vitamin E (Dl,Tocopheryl Acet) [Vitamin E] 400 unit PO DAILY 08/07/15 [History] Folic Acid 0.4 mg PO DAILY 12/01/16 [History] Insulin Regular, Human [Novolin R] 0 unit SQ AD 12/01/16 [History] Nitroglycerin [Nitrostat] 0.4 mg SL Q5M PRN 12/01/16 [History] Warfarin Sodium [Coumadin] 2 mg PO MOWEFR 12/08/16 [History] Warfarin [Coumadin] 4 mg PO SUTUTHSA 12/08/16 [History] Amiodarone [Cordarone] 200 mg PO DAILY #30 tablet 12/12/16 [Rx] OxyCODONE/APAP 5/325 [Percocet 5/325 MG] 1 each PO Q4HR PRN #30 tablet 12/12/16 [Rx] Isosorbide MONOnitrate (24 HR) [Imdur] 30 mg PO DAILY 01/20/17 [History] Furosemide [Lasix] 20 mg PO DAILY 03/04/17 [History] Insulin Glargine [Lantus] 12 unit SQ HS 03/04/17 [History] 3 Allergy/AdvReac Type Severity Reaction Status Date / Time No Known Allergies Allergy Verified 12/15/16 13:52 All Systems PM: A 10-system review of systems was performed and is negative for pertinent findings except as documented above in the HPI. - Constitutional Constitutional: fatigue, fever(s), weakness, no chills, no falls, no night sweats - EENT Eyes: no change in vision, no discharge, no pain, no photophobia Ears: no ear discharge, no ear pain, no tinnitus Nose, mouth and throat: no dysphagia, no nasal discharge, no neck pain, no sore throat - Cardiovascular Cardiovascular ROS IM: lightheadedness, syncope (Near syncopal event), no chest pain, no diaphoresis, no dyspnea, no edema, no irregular heart rhythm, no palpitations - Respiratory Respiratory: no cough, no dyspnea, no wheezing, no excessive phlegm production - Gastrointestinal Gastrointestinal: diarrhea (2 days, to which, he reports has subsided as of this time), no abdominal pain, no hematemesis, no hematochezia, no melena, no nausea, no vomiting - Musculoskeletal Musculoskeletal ROS IM: no numbness, no tingling - Integumentary Integumentary IM: no rash, no unusual bruising - Neurological Neurological ROS: dizziness, no confusion, no convulsions, no focal weakness, no headache(s), no numbness, no tingling, no tremor(s) - Hematologic/Lymphatic Hematologic/Lymphatic: no easy bruising - Constitutional Vitals: Temp Pulse Resp BP Pulse Ox 0 F L 58 18 114/51 100 03/04/17 09:19 03/04/17 10:30 03/04/17 10:30 03/04/17 10:30 03/04/17 10:30 General appearance: Present: cooperative, A&O X 3, no acute distress, answers questions appropriately - Head Head exam: Present: atraumatic, normocephalic - Eye Eye exam: Present: PERRL, conjuntiva pink, sclera anicteric Pupils: Present: PERRL - Neck Neck exam general surgery: Present: supple, trachea midline. Absent: lymphadenopathy - Respiratory Respiratory exam: Present: CTAB. Absent: accessory muscle use, rales, rhonchi, wheezes - Cardiovascular Cardiovascular exam: Present: bradycardia, RRR, +S1, +S2. Absent: diastolic murmur, gallop, rubs, systolic murmur - GI/Abdominal GI/Abdominal exam: Present: normal bowel sounds, soft, no peritoneal signs. Absent: distended, tenderness - Extremities Exam Extremities exam: Present: warm, radial pulses palpable and symmetrical. Absent : calf tenderness, cyanotic, pedal edema - Neurological Exam Neurological exam: Present: CN II-XII intact, oriented X3, no focal deficits. Absent: pronater drift, facial droop, speech deficit - Skin Skin exam: Present: dry, intact Internal Med - H&P Results - Labs CBC & Chem 7: 03/04/17 09:58 03/04/17 09:58 <AnsuhlDwayne - Last Filed: 03/04/17 17:35> Date of Encounter: 03/04/17 Internal Medicine - H&P: HPI History of present illness: is a 66 year old male All Systems PM: A 10-system review of systems was performed and is negative for pertinent findings except as documented above in the HPI. - Constitutional Vitals: Temp Pulse Resp BP Pulse Ox 97.6 F 49 16 121/60 99 03/04/17 15:16 03/04/17 15:16 03/04/17 15:16 03/04/17 15:16 03/04/17 15:16 Internal Med - H&P Results - Labs CBC & Chem 7: 03/04/17 09:58 03/04/17 16:05 Labs: BMP 03/04/17 16:05 Potassium 5.4 H Cardiac Enzymes 03/04/17 Range/Units 16:05 Troponin I 0.01 (0-0.03) ng/mL - Attending Attestation I have personally performed a face to face evaluation on this patient and I discussed the assessment and plan with the nurse practitioner. I have reviewed and agree with the documented care plan. History and Exam by me shows: jose carlos Smith is a 66 year old male with a past medical history of recent CABG, A. fib, cardiomyopathy, CAD, DM, HLD, HTN, MN with sudden cardiac , renal disease and TIA. Presents to [facility] from cardiac rehabilitation. Patient states that he was just finishing his rehabilitation for the day and sat down to rest, began feeling a little weak dizzy and fatigued. He then got up to look for his physical therapist to tell them he wasn't feeling well and he reports that they informed him he was south and looked weak. Telemetry revealed bradycardic HR of 30's. He was placed on a transcutaneous pacer and sent to the ED. he admits to fevers and diarrhea within the last 48 hours. However, the diarrhea has ceased at this time. Upon arrival he was given atropine and his HR increased to the 50' s but he remained asymptomatic. Workup revealed hyperkalemia and he was given calcium, insulin and glucose in the ED and his heart rate increased to the 50s. He is asymptomatic at this time. Being admitted to the [facility] for further workup and evaluation. Gen: A, A, O x 3 Chest; CTA, No wheezing, No crackles Heart : S1 S2 + Bradycardia a/p 1. Sinus bradycardia Due to sick sinus syndrome vs B wendy effect Held B wendy and Amiodarone cont close monitoring Asymptomatic now Card consulted 2. Mild Hyperkalemia - due to dehydration cont gentle IVF
[2017-03-04] MEDS ORDERED: Magnesium Sulfate 2 GM in D5% in Water 100 ML IVPB ONE (13:46)
[2017-03-04] MEDS: Insulin LISPRO 300 UNITS/3 ML VIAL SQ SCH ×2 (17:14→21:28)
[2017-03-04] MEDS ORDERED: Warfarin perPT PO PRN (18:00)
[2017-03-04] MEDS ORDERED: NON-FORMULARY MEDICATION 1 EACH EACH (Insulin Glargine [Lantus] 12 UNIT) SQ SCH (21:00)
[2017-03-04] MEDS: Insulin DETEMIR 100 UNIT/ML X5UNITS SQ SCH (21:27)
[2017-03-04] MEDS: Aspirin Enteric Coated 81 MG Tablet PO SCH (21:27)
[2017-03-05 05:01] LABS: Basophils % 0.3 %; Eosinophils # 0.1 K/mcL (0.0-0.6); Eosinophils % 1.8 %; Hematocrit 35.4 % (37.5-50.1); Hemoglobin 11.4 g/dL (12.9-16.9); Immature Granulocytes % 0.3 % (0-4); Lymphocytes # 0.9 K/mcL (0.6-4.6); Lymphocytes % 22.2 %; Mean Corpuscular HGB Conc 32.2 g/dL (31.6-35.5); Mean Corpuscular Hemoglobin 28.6 pg (28.0-33.3); Mean Corpuscular Volume 88.7 fL (83.0-100.0); Mean Platelet Volume 10.5 fL (9.4-12.4); Monocytes # 0.3 K/mcL (0.0-1.3); Monocytes % 8.4 %; Neutrophils # 2.6 K/mcL (1.6-8.9); Platelet Count 128 K/mcL (140-400); Red Blood Count 3.99 M/mcL (4.19-5.50); Red Cell Distribution Width 15.2 % (11.5-14.5)
[2017-03-05 05:08] LABS: Prothrombin Time 44.4 Seconds (9.4-12.1)
[2017-03-05 05:16] LABS: BUN/Creatinine Ratio 19 (6-26); Blood Urea Nitrogen 23 mg/dL (8-26); Calcium 8.8 mg/dL (8.6-10.8); Carbon Dioxide 22 mEq/L (19-29); Chloride 112 mEq/L (98-109); Glucose 104 mg/dL (70-99); Osmolality,Calculated 296 (280-300); Potassium 4.7 mEq/L (3.5-4.5); Sodium 141 mEq/L (136-145); eGFR For African Americans > 60 (> 60); eGFR For Non-African Americans 59 (> 60)
[2017-03-05] MEDS: Ascorbic Acid 500 MG TABLET PO SCH (07:53)
[2017-03-05] MEDS: Insulin LISPRO 300 UNITS/3 ML VIAL SQ SCH ×4 (07:54→21:31)
[2017-03-05] MEDS: Isosorbide MONOnitrate (24 HR) 30 MG TAB.ER.24H PO SCH (07:54)
[2017-03-05] MEDS: Folic Acid 1 MG TABLET PO SCH (07:54)
--- NOTE | 2017-03-05 08:09 | Electrocardiograph Report ---
[address] [address] Test Date: 2017-03-04 Pat Name: Anastacio Smith Department: 103 Room: 2N03 Gender: M Registered Nurse Nursery: [facility] : 1950 Requested By: Jorgito Kat Order Number: [id number] Reading MD: Hadley Mattson MD Measurements Intervals [place] Rate: 41 P: TX: 0 QRS: 13 QRSD: 105 T: 51 QT: 430 QTc: 365 Interpretive Statements JUNCTIONAL RHYTHM Electronically Signed On 03-05-2017 6:36:58 EDT by Hadley Mattson MD
--- NOTE | 2017-03-05 08:09 | Electrocardiograph Report ---
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
[2017-03-05] MEDS ORDERED: Furosemide 20 MG TABLET PO SCH (09:00)
[2017-03-05] MEDS ORDERED: NON-FORMULARY MEDICATION 1 EACH EACH (Lisinopril [Lisinopril] 2.5 MG) PO SCH (09:00)
[2017-03-05] MEDS ORDERED: *HR* Amiodarone 200 MG TABLET PO SCH (09:00)
--- NOTE | 2017-03-05 10:44 | Cardiology Progress Note ---
Date of Encounter: 03/05/17 Time of Encounter: 09:00 Assessment and Plan (1) Bradycardia Current Visit: Yes Status: Acute Per cardiology: -Patient denies dizziness, lightheadedness, syncope, or near syncope. -Was on beta wendy and amiodarone in oupatient setting. -Of note, K 5.8 on admission. Today 4.7. -Hold AV maurice wendy and amiodarone. -Patient ok to ambulate in the hallway. -No urgent need for pacemaker at this time. -Will continue to monitor telemetry. (2) Paroxysmal atrial fibrillation Current Visit: No Status: Chronic Per cardiology: -KNown PAF, recent modified MAZE during CABG -Was on beta wendy and amiodarone in outpatient setting. -Anticoagulated with coumadin. -ECG with junctional bradycardia, HR 41. -Will hold AV maurice blockers due to bradycardia. -Will continue to monitor. (3) BELTRAN (acute kidney injury) Current Visit: Yes Status: Acute Per cardiology: -BELTRAN noted with creatinine 1.49. -Baseline 0.9-1.2. -Creatinine today 1.23. -Management per primary service. (4) Hyperkalemia Current Visit: Yes Status: Acute Per cardiology: -K 5.8 on admission. -Today K 4.7. -Was treated in ER. -Management per primary service. (5) CAD (coronary artery disease) Current Visit: No Status: Acute Per cardiology: -KNown CAD with [facility] 11/2016 with severe multi-vessel disease. -CABG x4 11/2016 with LEVY to LAD, SVG to D1 and OM2, and SVG to PDA. -Denies chest pain. -ECG with no ischemic changes. -Echo 11/2016 with LVEF 55%, mild LV DD, moderately dilated LA, no significant valvular dysfunction, all fong with normal motion. -On asa, statin, imdur. Beta wendy being held due to bradycardia -Troponin negative x3. -Will continue to monitor. Qualifiers: Coronary Disease-Associated Artery/Lesion type: [place] artery [place] vs. transplanted heart: [place] heart Associated angina: with stable angina Qualified Code(s): I25.118 - Atherosclerotic heart disease of [place] coronary artery with other forms of angina pectoris Discussion w patient/family: The assessment and plan as outlined above was discussed with the patient who expressed understanding and agreement. All questions were answered. Thank you for involving us in the care of your patient. Please call with any questions. Discussed and reviewed with . Subjective Principal diagnosis: bradycardia Interval history: Patient states he feels fine this morning. Patient states he is anxious to get out of bed. Objective Vital Signs, Last 4 Hours Temp Pulse Resp BP Pulse Ox 03/05/17 10:26 98.1 F 47 16 03/05/17 08:05 50 03/05/17 06:58 98.1 F 46 135/67 98 General: Conversant, No Apparent Distress HEENT: Atraumatic, Normocephaly, Mucus Membranes Moist Neck: No JVD, Normal carotid pulses Cardiac: Normal S1 and S2, No Murmur, Other (Bradycardic. ) Lungs: Normal Breath Sounds, No Wheeze, Rales, Rhonchi Neuro: Alert and responsive, No focal deficits noted Abdomen: Soft, Non-Tender Skin: No rashes noted on visualized skin Musculoskeletal: No Chest Wall Tenderness Extremities: No Clubbing, No Cyanosis, No Edema, Normal Pulses Results 03/05/17 04:44 03/05/17 04:44 Lab Results Impressions Echocardiogram 03/04/17 12:16 Impressions: Sinus bradycardia. HR 50s. LVEF 50-55%. Not all LV segments well visualized, but overall function appears normal. Mild concentric left ventricular hypertrophy. Moderate left ventricular diastolic dysfunction. Normal right ventricular structure and function. No evidence of pulmonary hypertension. No significant valvular dysfunction. Findings: Study Quality * Technically sub-optimal due to poor echocardiographic windows. ECG Findings * Sinus bradycardia. HR 50s. Left Ventricle * LVEF 50-55%. Not all LV segments well visualized, but overall function appears normal. * Normal LV chamber size. * Mild concentric left ventricular hypertrophy. * Moderate left ventricular diastolic dysfunction. * Atypical septal motion consistent with post-operative status. Right Ventricle * Normal right ventricular structure and function. Left Atrium * Moderately dilated left atrium. Right Atrium * Mildly dilated right atrium. Interatrial Septum * Interatrial septum not well evaluated. Aortic Valve * Aortic valve not well visualized. * No aortic regurgitation. * No aortic stenosis. Mitral Valve * Normal mitral valve structure and function. * No mitral regurgitation. * No mitral stenosis. Tricuspid Valve * Normal tricuspid valve structure and function. * Trace tricuspid regurgitation. * No evidence of pulmonary hypertension. Pulmonic Valve * Pulmonic valve not well visualized. * No pulmonic regurgitation. Aorta * Normally sized aortic root. Pericardium * The pericardium appears normal. IVC * Normal IVC dimensions and inspiratory collapse. Pulmonary Artery * Normal visualized portions of the main pulmonary artery. Active Medications Ascorbic Acid (Vitamin C) 1,000 mg PO DAILY [facility] Stop: 09/04/17 09:01 Last Admin: 03/05/17 07:53 Dose: Not Given Aspirin (Aspirin Ec) 81 mg PO HS [facility] Stop: 09/03/17 21:01 Last Admin: 03/04/17 21:27 Dose: 81 mg Atorvastatin Calcium (Lipitor) 80 mg PO HS [facility] Stop: 09/03/17 21:01 Last Admin: 03/04/17 21:27 Dose: 80 mg Dextrose/Water (Dextrose 50% (Syg)) 25 ml IVP AD PRN PRN Reason: Hypoglycemia Stop: 09/03/17 12:19 Folic Acid (Folic Acid) 0.5 mg PO DAILY [facility] Stop: 09/04/17 09:01 Last Admin: 03/05/17 07:54 Dose: Not Given Glucagon (Glucagen) 1 mg IM ONCE PRN PRN Reason: Hypoglycemia Stop: 09/03/17 12:19 Glucose (Gluctose) 15 gm PO ONCE PRN PRN Reason: Hypoglycemia Stop: 09/03/17 12:19 Glucose (Gluctose) 30 gm PO ONCE PRN PRN Reason: Hypoglycemia Stop: 09/03/17 12:19 Dextrose (Dextrose 5%) 1,000 mls @ 100 mls/hr IVC .Q10H PRN PRN Reason: HYPOGLYCEMIA Stop: 09/03/17 12:19 Sodium Chloride (0.45% Sodium Chloride 1000 Ml 1000 Ml) 1,000 mls @ 50 mls/hr IVC .Q20H [facility] Stop: 09/03/17 17:31 Last Admin: 03/04/17 18:08 Dose: 50 mls/hr Insulin Detemir (Levemir) 12 unit SQ [facility] Stop: 09/03/17 21:01 Last Admin: 03/04/17 21:27 Dose: 12 unit Insulin Human Lispro (Humalog) 0 units SQ TIDAC [facility] PRN Reason: Protocol Stop: 09/03/17 16:31 Last Admin: 03/05/17 07:54 Dose: Not Given Insulin Human Lispro (Humalog) 0 units SQ [facility] PRN Reason: Protocol Stop: 09/03/17 21:01 Last Admin: 03/04/17 21:28 Dose: Not Given Isosorbide Mononitrate (Imdur) 30 mg PO DAILY [facility] Stop: 09/04/17 09:01 Last Admin: 03/05/17 07:54 Dose: 30 mg Naloxone HCl (Narcan) 0.4 mg IVP Q2MIN PRN PRN Reason: Opioid Reversal Stop: 09/03/17 12:19 Nitroglycerin (Nitroglycerin) 0.4 mg SL Q5M PRN PRN Reason: Chest Pain Stop: 09/03/17 12:11 Oxycodone/Acetaminophen (Percocet 5/325) 1 each PO Q4HR PRN PRN Reason: Severe Pain Stop: 09/03/17 12:11 Vitamin E (Vitamin E) 400 unit PO DAILY [facility] Stop: 09/04/17 09:01 Last Admin: 03/05/17 07:56 Dose: Not Given Warfarin Sodium (Coumadin Perpt) 1 each PO DAILY@1800 PRN PRN Reason: SEE COMMENTS Stop: 09/03/17 18:01 Laboratory Tests 03/04/17 03/04/17 03/04/17 09:58 09:58 16:05 Hgb INR Potassium Creatinine 1.49 H Troponin I 0.02 0.01 03/04/17 03/05/17 03/05/17 21:54 04:44 04:44 Hgb 11.4 L INR Potassium 4.7 H Creatinine 1.23 Troponin I 0.01 03/05/17 04:44 Hgb INR 4.0 Potassium Creatinine Troponin I - Imaging and Cardiology Chest Xray: report reviewed Stress Test: report reviewed Echo: report reviewed Cardiac cath: report reviewed - EKG Interpretation EKG results cardiology: other (Telemetry reviewed with average HR previous 12 hours noted to be 45, sinus bradycardia. Minimum HR 41 at 2200. PVCs and PACs noted.) Consult Discharge Plan - Plan Referrals: Vira Austin, JORGE L [Primary Care Provider] - 03/12/17 3:00 pm Barron Beckford DO [Partnered Physician] - 03/09/17 9:40 am
--- NOTE | 2017-03-05 17:00 | Internal Med Progress Note ---
<Manan Webber - Last Filed: 03/05/17 16:58> Date of Encounter: 03/05/17 Time of Encounter: 09:30 - Assessment and plan (1) Bradycardia Current Visit: Yes Status: Acute Assessment and plan: Patient was admitted with a heart rate of 30 found during cardiac rehabilitation. Patient is a significant history of CABG and multiple stents. - He was transcutaneously paced and provided atropine in the emergency department - His beta wendy was continued at the time of admission - Heart rates from today has been 45-55 increasing to 60 with activity - No syncopal or near-syncopal events Plan: - Hold beta wendy at discharge - Continue secured entrance monitor during inpatient stay - During inpatient stay hold AV maurice blockers, beta wendy and amiodarone. - Cardiology evaluated the patient appreciate the recommendations. (2) CAD (coronary artery disease) Current Visit: No Status: Acute Assessment and plan: Known history of coronary artery disease, CABG and multiple stents. Echocardiogram: Sinus bradycardia heart rate of 50s, left ventricular ejection fraction 50-55%, not all left ventricular segment was well visualized during the study but overall function appeared normal. Mild concentric left ventricular hypertrophy. Moderate left ventricular diastolic dysfunction. Normal right ventricular structure and function. No evidence of pulmonary hypertension. No significant valvular dysfunction. Continue aspirin, statin, Imdur. - Holding beta wendy in the setting of bradycardia Qualifiers: Coronary Disease-Associated Artery/Lesion type: [place] artery [place] vs. 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 After holding lisinopril patient's hyperkalemia has resolved - Continue to monitor with a.m. labs (6) DVT prophylaxis Current Visit: Yes Status: Acute Assessment and plan: Patient's supratherapeutic on INR currently. - Subjective Interval history: 66-year-old male last seen about a patient bedside. He states that he is feeling well and denies any discomfort, lightheadedness, dizziness, loss of consciousness, fatigue or muscle weakness, chest pain, palpitations, abdominal pain, nausea vomiting diarrhea or constipation. He says that he has been up walking around and denies any lightheadedness with ambulation. He says he feels fine and does not notice that his heart rate is low. He rediscussed his events that cardiac rehabilitation and denies ever passing out or feeling lightheaded or dizzy. He just said that everything felt like it was harder to do. At this current time he is feeling well and awaiting cardiology's recommendations. - Constitutional Vitals: Temp Pulse Resp BP Pulse Ox 98.1 F 46 16 135/67 98 03/05/17 10:26 03/05/17 16:41 03/05/17 10:26 03/05/17 06:58 03/05/17 06:58 General appearance: Present: cooperative, A&O X 3, no acute distress, answers questions appropriately Exam: General: Patient alert, awake, oriented 3, interactive, in no acute distress HEENT: Normocephalic, atraumatic, pupils equal reactive to light, nasal cavity patent and open septum median position, oral mucosa moist, uvula midline, neck supple trachea midline no palpable lymphadenopathy, no thyromegaly. Chest: Symmetric bilateral correlating with respiratory effort, effort nonlabored. Post CABG scar healing appropriately. Cardiac: Bradycardic, positive S1 and S2. no bruits appreciated bilateral carotids, Radial pulses 2+ bilateral, posterior tibial and dorsal pedal pulses 2 + bilateral. Respiratory: Clear to auscultation all lung iyer Abdomen: Soft, nontender, positive bowel sounds, no palpable masses appreciated on examination Extremities: Symmetric bilateral, bilateral lower extremities without erythema or edema patient moving all 4 extremities spontaneously. Neurologic: No focal deficits appreciated on examination. Face symmetric, muscle strength symmetric bilateral upper and lower extremities. Internal Medicine: Result - Labs CBC & Chem 7: 03/05/17 04:44 03/05/17 04:44 Labs: Short CBC 03/05/17 Range/Units 04:44 WBC 3.9 L (4.3-11.1) K/mcL Hgb 11.4 L (12.9-16.9) g/dL Hct 35.4 L (37.5-50.1) % Plt Count 128 L (140-400) K/mcL Neutrophils # 2.6 (1.6-8.9) K/mcL BMP 03/05/17 04:44 Sodium 141 Potassium 4.7 H Chloride 112 H Carbon Dioxide 22 BUN 23 D Creatinine 1.23 Glucose 104 H Calcium 8.8 Cardiac Enzymes 03/04/17 Range/Units 21:54 Troponin I 0.01 (0-0.03) ng/mL - ABG Interpretation ABG results: PT/INR, D-dimer PT 44.4 Seconds (9.4-12.1) H* 03/05/17 04:44 Consult Discharge Plan - Plan Referrals: Vira Austin CNP [Primary Care Provider] - 03/12/17 3:00 pm Barron Beckford DO [Partnered Physician] - 03/09/17 9:40 am <Myron Liu - Last Filed: 03/05/17 17:55> Date of Encounter: 03/05/17 - Constitutional Vitals: Temp Pulse Resp BP Pulse Ox 97.7 F 43 15 127/72 94 03/05/17 17:41 03/05/17 17:41 03/05/17 17:41 03/05/17 17:41 03/05/17 17:41 Internal Medicine: Result - Labs CBC & Chem 7: 03/05/17 04:44 03/05/17 04:44 Labs: Short CBC 03/05/17 Range/Units 04:44 WBC 3.9 L (4.3-11.1) K/mcL Hgb 11.4 L (12.9-16.9) g/dL Hct 35.4 L (37.5-50.1) % Plt Count 128 L (140-400) K/mcL Neutrophils # 2.6 (1.6-8.9) K/mcL BMP 03/05/17 04:44 Sodium 141 Potassium 4.7 H Chloride 112 H Carbon Dioxide 22 BUN 23 D Creatinine 1.23 Glucose 104 H Calcium 8.8 Cardiac Enzymes 03/04/17 Range/Units 21:54 Troponin I 0.01 (0-0.03) ng/mL - ABG Interpretation ABG results: PT/INR, D-dimer PT 44.4 Seconds (9.4-12.1) H* 03/05/17 04:44 - Attending Attestation I examined this patient and my medical decision-making was reviewed with the Resident Physician. I agree with the documented findings, disposition and treatment plan as described except to the extent set forth below. The patient is in no acute distress awake alert oriented. On exam heart auscultation reveals bradycardic regular S1-S2 with no murmurs. Plan: Hold metoprolol. Monitor on telemetry. Hold lisinopril. Check electrolytes in the morning. Follow-up with cardiology.
[2017-03-05] MEDS: Insulin DETEMIR 100 UNIT/ML X5UNITS SQ SCH (21:30)
[2017-03-05] MEDS: Aspirin Enteric Coated 81 MG Tablet PO SCH (21:31)
[2017-03-06 04:56] LABS: Basophils % 0.2 %; Eosinophils # 0.1 K/mcL (0.0-0.6); Eosinophils % 1.6 %; Hematocrit 35.2 % (37.5-50.1); Hemoglobin 11.6 g/dL (12.9-16.9); Lymphocytes % 22.7 %; Mean Corpuscular Hemoglobin 28.9 pg (28.0-33.3); Mean Corpuscular Volume 87.8 fL (83.0-100.0); Mean Platelet Volume 11.1 fL (9.4-12.4); Monocytes # 0.4 K/mcL (0.0-1.3); Monocytes % 9.4 %; Platelet Count 131 K/mcL (140-400); Red Blood Count 4.01 M/mcL (4.19-5.50); Segmented Neutrophils % 66.1 %
[2017-03-06 05:02] LABS: INR 2.6; Prothrombin Time 28.6 Seconds (9.4-12.1)
[2017-03-06 05:26] LABS: Alanine Aminotransferase 25 Units/L (0-55); Albumin 3.3 g/dL (3.5-5.0); Alkaline Phosphatase 79 Units/L (38-126); Aspartate Amino Transferase 16 Units/L (5-34); BUN/Creatinine Ratio 16 (6-26); Bilirubin,Total 0.3 mg/dL (0.2-1.2); Blood Urea Nitrogen 21 mg/dL (8-26); Calcium 8.9 mg/dL (8.6-10.8); Carbon Dioxide 23 mEq/L (19-29); Chloride 110 mEq/L (98-109); Globulin 3.2 g/dL (2.4-3.5); Glucose 146 mg/dL (70-99); Osmolality,Calculated 298 (280-300); Sodium 141 mEq/L (136-145); Total Protein 6.5 g/dL (6.0-8.3); eGFR For African Americans > 60 (> 60); eGFR For Non-African Americans 53 (> 60)
[2017-03-06 05:59] LABS: Potassium 5.3 mEq/L (3.5-4.5)
[2017-03-06] MEDS: Folic Acid 1 MG TABLET PO SCH (08:21)
[2017-03-06] MEDS: Insulin LISPRO 300 UNITS/3 ML VIAL SQ SCH (08:21)
[2017-03-06] MEDS: Ascorbic Acid 500 MG TABLET PO SCH (08:21)
[2017-03-06] MEDS: Isosorbide MONOnitrate (24 HR) 30 MG TAB.ER.24H PO SCH (08:21)
--- NOTE | 2017-03-06 10:13 | Cardiology Progress Note ---
Date of Encounter: 03/06/17 Time of Encounter: 09:45 Assessment and Plan (1) Bradycardia Current Visit: Yes Status: Acute Per cardiology: -Patient denies dizziness, lightheadedness, syncope, or near syncope. -Patient ambulated with no symptoms. -Average Hr previous 12 hours noted to be 50. -Was on beta wendy and amiodarone in oupatient setting. -Of note, K 5.8 on admission. Today 5.3. -Hold AV maurice wendy and amiodarone. -Cardiology will sign off and will monitor in outpatient setting. -Patient is ok to continue with cardiac rehab. Will fax my note to cardiac rehab. (2) Paroxysmal atrial fibrillation Current Visit: No Status: Chronic Per cardiology: -[place] PAF, recent modified MAZE during CABG -Was on beta wendy and amiodarone in outpatient setting. -Anticoagulated with coumadin. -ECG with junctional bradycardia, HR 41. -Telemetry with no a.fib appreciated overnight. -Will hold AV maurice blockers due to bradycardia. -Will continue to monitor in outpatient setting. (3) BELTRAN (acute kidney injury) Current Visit: Yes Status: Acute Per cardiology: -BELTRAN noted with creatinine 1.49. -Baseline 0.9-1.2. -Creatinine today 1.34. -Management per primary service. Discussed with . (4) Hyperkalemia Current Visit: Yes Status: Acute Per cardiology: -K 5.8 on admission. -Today K 5.3. -Was treated in ER. -Management per primary service. Discussed with . (5) CAD (coronary artery disease) Current Visit: No Status: Acute Per cardiology: -KNown CAD with [facility] 11/2016 with severe multi-vessel disease. -CABG x4 11/2016 with LEVY to LAD, SVG to D1 and OM2, and SVG to PDA. -Denies chest pain. -ECG with no ischemic changes. -Echo 11/2016 with LVEF 55%, mild LV DD, moderately dilated LA, no significant valvular dysfunction, all fong with normal motion. -On asa, statin, imdur. Beta wendy being held due to bradycardia -Troponin negative x3. -Will continue to monitor in outpatient setting. Qualifiers: Coronary Disease-Associated Artery/Lesion type: [place] artery [place] vs. transplanted heart: [place] heart Associated angina: with stable angina Qualified Code(s): I25.118 - Atherosclerotic heart disease of [place] coronary artery with other forms of angina pectoris Discussion w patient/family: The assessment and plan as outlined above was discussed with the patient who expressed understanding and agreement. All questions were answered. Thank you for involving us in the care of your patient. Please call with any questions. Discussed and reviewed with . Subjective Principal diagnosis: bradycardia Interval history: Patient states he feels great this morning. Patient states he is going home today. Patient states he walked in the halls for an hour yesterday without dizziness, lightheadedness, syncope, or near syncope. Pateint states he has already been up walking today without symptoms. Patient is adamant that he is going home today or he is going to sign out AMA. Objective Vital Signs, Last 4 Hours Temp Pulse Resp BP Pulse Ox 03/06/17 06:58 97.8 F 55 16 124/64 96 General: Conversant, No Apparent Distress HEENT: Atraumatic, Normocephaly, Mucus Membranes Moist Neck: No JVD, Normal carotid pulses Cardiac: Normal S1 and S2, No Murmur, Other (Bradycardic) Lungs: Normal Breath Sounds, No Wheeze, Rales, Rhonchi Neuro: Alert and responsive, No focal deficits noted Abdomen: Soft, Non-Tender Skin: No rashes noted on visualized skin Musculoskeletal: No Chest Wall Tenderness Extremities: No Clubbing, No Cyanosis, No Edema, Normal Pulses Results 03/06/17 04:39 03/06/17 04:39 Lab Results Active Medications Ascorbic Acid (Vitamin C) 1,000 mg PO DAILY [facility] Stop: 09/04/17 09:01 Last Admin: 03/06/17 08:21 Dose: Not Given Aspirin (Aspirin Ec) 81 mg PO HS [facility] Stop: 09/03/17 21:01 Last Admin: 03/05/17 21:31 Dose: 81 mg Atorvastatin Calcium (Lipitor) 80 mg PO [facility] Stop: 09/03/17 21:01 Last Admin: 03/05/17 21:30 Dose: 80 mg Dextrose/Water (Dextrose 50% (Syg)) 25 ml IVP AD PRN PRN Reason: Hypoglycemia Stop: 09/03/17 12:19 Folic Acid (Folic Acid) 0.5 mg PO DAILY [facility] Stop: 09/04/17 09:01 Last Admin: 03/06/17 08:21 Dose: Not Given Glucagon (Glucagen) 1 mg IM ONCE PRN PRN Reason: Hypoglycemia Stop: 09/03/17 12:19 Glucose (Gluctose) 15 gm PO ONCE PRN PRN Reason: Hypoglycemia Stop: 09/03/17 12:19 Glucose (Gluctose) 30 gm PO ONCE PRN PRN Reason: Hypoglycemia Stop: 09/03/17 12:19 Dextrose (Dextrose 5%) 1,000 mls @ 100 mls/hr IVC .Q10H PRN PRN Reason: HYPOGLYCEMIA Stop: 09/03/17 12:19 Sodium Chloride (0.45% Sodium Chloride 1000 Ml 1000 Ml) 1,000 mls @ 50 mls/hr IVC .Q20H [facility] Stop: 09/03/17 17:31 Last Admin: 03/05/17 13:41 Dose: 50 mls/hr Insulin Detemir (Levemir) 12 unit SQ HS [facility] Stop: 09/03/17 21:01 Last Admin: 03/05/17 21:30 Dose: 12 unit Insulin Human Lispro (Humalog) 0 units SQ TIDAC [facility] PRN Reason: Protocol Stop: 09/03/17 16:31 Last Admin: 03/06/17 08:21 Dose: Not Given Insulin Human Lispro (Humalog) 0 units SQ HS [facility] PRN Reason: Protocol Stop: 09/03/17 21:01 Last Admin: 03/05/17 21:31 Dose: Not Given Isosorbide Mononitrate (Imdur) 30 mg PO DAILY [facility] Stop: 09/04/17 09:01 Last Admin: 03/06/17 08:21 Dose: 30 mg Naloxone HCl (Narcan) 0.4 mg IVP Q2MIN PRN PRN Reason: Opioid Reversal Stop: 09/03/17 12:19 Nitroglycerin (Nitroglycerin) 0.4 mg SL Q5M PRN PRN Reason: Chest Pain Stop: 09/03/17 12:11 Oxycodone/Acetaminophen (Percocet 5/325) 1 each PO Q4HR PRN PRN Reason: Severe Pain Stop: 09/03/17 12:11 Vitamin E (Vitamin E) 400 unit PO DAILY [facility] Stop: 09/04/17 09:01 Last Admin: 09/22/17 08:21 Dose: Not Given Warfarin Sodium (Coumadin Perpt) 1 each PO DAILY@1800 PRN PRN Reason: SEE COMMENTS Stop: 09/03/17 18:01 Warfarin Sodium (Coumadin) 4 mg PO 1800 [facility] Stop: 03/06/17 18:01 Laboratory Tests 03/04/17 03/04/17 03/05/17 09:58 16:05 04:44 Hgb INR Potassium 5.8 H 5.4 H 4.7 H Creatinine 1.49 H 1.23 03/06/17 03/06/17 03/06/17 04:39 04:39 04:39 Hgb 11.6 L INR 2.6 Potassium 5.3 H Creatinine 1.34 H - Imaging and Cardiology Chest Xray: report reviewed Echo: report reviewed Cardiac cath: report reviewed - EKG Interpretation EKG results cardiology: other (Telemetry reviewed with average HR previous 12 hours noted to be 50, sinus bradycardia, PVCs and PACs noted.) Consult Discharge Plan - Plan Additional Instructions: Stop amiodarone and metoprolol because it can lower your heart rate to a dangerous level. Stop lisinopril due to elevated potassium. Avoid potassium rich foods. Hold Lasix until Thursday due to mild dehydration. Hold metformin until Thursday due to mild renal insufficiency. He can resume Lasix and metformin on Thursday but did not resume metoprolol and amiodarone unless instructed by our renderer. Referrals: Vira Austin CNP [Primary Care Provider] - 03/12/17 3:00 pm Barron Beckford DO [Partnered Physician] - 03/09/17 9:40 am
--- NOTE | 2017-03-06 10:30 | Discharge Summary ---
Date of Encounter: 03/06/17 Time of Encounter: 10:24 - Discharge Diagnosis (1) Dehydration Priority: Secondary Status: Acute (2) BELTRAN (acute kidney injury) Priority: Secondary Status: Acute (3) Bradycardia Priority: Primary Status: Acute (4) CAD (coronary artery disease) Priority: Secondary Status: Acute Qualifiers: Coronary Disease-Associated Artery/Lesion type: [place] artery [place] vs. transplanted heart: [place] heart Associated angina: with stable angina Qualified Code(s): I25.118 - Atherosclerotic heart disease of [place] coronary artery with other forms of angina pectoris (5) HTN (hypertension) Priority: Secondary Status: Chronic Qualifiers: Hypertension type: essential hypertension Qualified Code(s): I10 - Essential (primary) hypertension (6) Hyperkalemia Priority: Secondary Status: Acute (7) Insulin dependent diabetes mellitus Priority: Secondary Status: Acute (8) Near syncope Priority: Secondary Status: Acute (9) Paroxysmal atrial fibrillation Priority: Secondary Status: Chronic (10) Anticoagulated on Coumadin Priority: Secondary Status: Acute - Discharge Medications Home Medications: Atorvastatin [Lipitor] 80 mg PO HS 06/07/15 [History] Ascorbic Acid [Vitamin C] 1,000 mg PO DAILY 08/07/15 [History] Aspirin [Adult Low Dose Aspirin EC] 81 mg PO HS 08/07/15 [History] Vitamin E (Dl,Tocopheryl Acet) [Vitamin E] 400 unit PO DAILY 08/07/15 [History] Folic Acid 0.4 mg PO DAILY 12/01/16 [History] Insulin Regular, Human [Novolin R] 0 unit SQ AD 12/01/16 [History] Nitroglycerin [Nitrostat] 0.4 mg SL Q5M PRN 12/01/16 [History] Warfarin Sodium [Coumadin] 2 mg PO MOWEFR 12/08/16 [History] Warfarin [Coumadin] 4 mg PO SUTUTHSA 12/08/16 [History] OxyCODONE/APAP 5/325 [Percocet 5/325 MG] 1 each PO Q4HR PRN #30 tablet 12/12/16 [Rx] Isosorbide MONOnitrate (24 HR) [Imdur] 30 mg PO DAILY 01/20/17 [History] Insulin Glargine [Lantus] 12 unit SQ HS 03/04/17 [History] Allergies/Adverse Reactions: 3 Allergy/AdvReac Type Severity Reaction Status Date / Time No Known Allergies Allergy Verified 12/15/16 13:52 Procedures/tests Complete & Pending: Procedures Performed prior 72 hours Category Date Time Status ECG 12 lead ECG [ECG] Routine Y 03/04/17 13:41 Completed Date of admission: 03/04/17 12:18 Primary care physician: Vira Austin CNP - Patient Status Disposition: Home, Self-Care Condition: Fair Functional capacity at discharge: independent ambulation Overall status at discharge: patient is back to baseline - Discharge Instructions Follow Up With: Vira Austin CNP [Primary Care Provider] - 03/12/17 3:00 pm Barron Beckford DO [Partnered Physician] - 03/09/17 9:40 am Additional Instructions: Stop amiodarone and metoprolol because it can lower your heart rate to a dangerous level. Stop lisinopril due to elevated potassium. Avoid potassium rich foods. Hold Lasix until Thursday due to mild dehydration. Hold metformin until Thursday due to mild renal insufficiency. He can resume Lasix and metformin on Thursday but did not resume metoprolol and amiodarone unless instructed by our supervisor sanding. - Diet and Activity Activity: increase activity as tolerated Diet: advance to your usual diet, diabetic diet, low fat, low cholesterol, low salt diet Hospital course: is a 66 year old male with multiple medical comorbidities including coronary artery disease, hypertension, diabetes, recent status post CABG who presented to the hospital with generalized weakness. He was found to be bradycardic with heart rate in the low 30s. He was externally paced on his way to the hospital. Evaluation in the emergency department he was bradycardic in the low 40s. Blood work revealed a cute kidney injury and hyperkalemia which is mild. He was admitted to the medical service. Metoprolol and amiodarone were held. Lasix, metformin and lisinopril were also held due to dehydration, mild AK I and hyperkalemia. Patient's heart rate was in the 50s and 60s and increased appropriately with exertion. He is back to his baseline. He denies syncope, near syncope and lightheadedness. His creatinine is trending down and is at 1.3 today. Potassium is 5.3 and therefore I instructed the patient to avoid high potassium foods. I advised him to stop taking amiodarone and metoprolol due to low heart rate and hold metformin lisinopril and Lasix until he recovers from his episode of diarrhea and dehydration. He expresses understanding and agreement with discharge planning. He was evaluated by cardiology while inpatient and was advised to follow-up closely with outpatient cardiology. - Time Spent with Patient Total time spent providing and/or coordinating discharge services: Greater than 30 minutes (I have spent 40 minutes coordinating this discharge.) - Constitutional Vitals: Temp Pulse Resp BP Pulse Ox 97.8 F 55 16 124/64 96 03/06/17 06:58 03/06/17 06:58 03/06/17 06:58 03/06/17 06:58 03/06/17 06:58 General appearance: Present: cooperative, A&O X 3, no acute distress, answers questions appropriately
[2017-03-06 10:59] VITALS: BP 139/81
[2017-03-06] MEDS ORDERED: *HR* Warfarin 4 MG TABLET PO ONE (18:00)
--- NOTE | 2017-03-09 08:33 | Electrocardiograph Report ---
[place] [id number] Test Date: 2017-03-04 Pat Name: Anastacio Smith Department: 110 Room: 2N03 Gender: M [employer]: HOLLI : 1950 Requested By: Myron Liu Order Number: [id number] Reading MD: Barron Beckford DO Measurements Intervals [place] Rate: 54 P: 39 VT: 174 QRS: -1 QRSD: 98 T: 38 QT: 381 QTc: 366 Interpretive Statements SINUS BRADYCARDIA NONSPECIFIC T-WAVE ABNORMALITY Electronically Signed On 03-08-2017 9:10:40 EDT by Barron Beckford DO
== END 2017-03-06 11:29 | disposition home or self-care (01) | DRG 309 ==
LOC: EMEROO 09:16 → 2NNU 09:16
PROVIDERS: ADMIT Family Medicine; ATTEND Internal Medicine